=== PATIENT | male | born 1965 | race Caucasian/White ===

== ENCOUNTER 2023-11-27 20:12 | Inpatient (IN) ==
--- NOTE | 2023-11-27 20:57 | Emergency Department Note ---
History of Present Illness General Chief complaint: Back Injury/Pain Stated complaint: Lower Back Pain, R Leg Numbness Time Seen by Provider: 11/27/23 20:42 Source: patient, RN notes reviewed and old records reviewed (Attempted but there are no old records in the EMR) Mode of arrival: EMS Limitations: no limitations History of Present Illness Maximum Pain Intensity: 9 This patient is a 58-year-old male who comes in after having right-sided back pain. He was lifting cases of beer around 1:00 and had sudden back pain in his right lower back radiates down his leg he feels somewhat tingling in his leg but no weakness no change in bowel or bladder function there is no trauma no fever he does not have a primary doctor at present. Blood sugars tend to run high in the 200s Home Medications Medication Instructions Recorded Confirmed Type aspirin 325 mg tablet,delayed 0 mg PO DIRECTED PRN Pain 11/27/23 11/27/23 History release (Tadeo Aspirin) Allergies Allergy/AdvReac Type Severity Reaction Status Date / Time No Known Allergies Allergy Verified 11/27/23 21:02 Past Med/Surg History Social History Smoking Status: Never smoker Hx Alcohol Use: Yes Alcohol type: beer Hx Substance Use: No Preferred Language: Thai Communication Ability: Effective Behavioral Medical Director Required: No Beliefs That Will Affect Care: None Current Living Situation: Significant Other Feels Safe at Home: Yes Safety Concerns: Feels Safe At This Time Assistive Devices: Glasses Assistive Devices Comment: has not been wearing glasses for a few years Immunizations: Past medical historyno history of back surgery or MRI. History of high blood pressure which is untreated. No abdominal surgeries Social history- he does not smoke ,he drinks about 4 drinks a day does not have any trouble with withdrawal. Denies drug use Review of Systems A total of 10 systems reviewed and were otherwise negative Physical Exam Vital Signs Vital Signs - 24 hr 11/28/23 01:11 Pulse Rate [Right Finger] 60 Respiratory Rate 18 Blood Pressure [Right Arm] 142/79 H Blood Pressure Mean [Right Arm] 100 Blood Pressure Position [Right Arm] Lying Pulse Oximetry 94 Oxygen Delivery Method Room Air General: Well developed well nourished middle-age male who in no acute distress, breathing comfortably on room air. Normal speech HEENT: Normal cephalic atraumatic. Pupils are equal round and reactive to light. Extraocular movements are intact. Oropharynx is pink with moist mucous membranes. No swelling of the mouth lips or tongue. Neck: Supple with a midline trachea. No meningeal signs or stiffness, no JVD or bruits. No Stridor. Chest: Clear to auscultation bilaterally. No wheezes or rhonchi. No increased work of breathing. Heart: Regular rate and rhythm without murmurs or gallops. Abdomen: Soft nontender, nondistended without rebound guarding or rigidity. Extremities: No cyanosis clubbing or edema. No calf tenderness or assymetry Spine/Back. Mildly tender to palpation on the right lower spine. Skin: Good turgor without rashes. Neurologic exam: Cranial nerves two through 12 are intact. Motor and sensation are intact and symmetrical throughout. He does have pain with movement the right leg however when he does have intact reflexes with 2+ Achilles and patella he has intact sensation to light touch and normal motor. Course Administered Medications Insulin Aspart (Insulin Aspart Per Unit Charge) 0 units SC [facility] Stop: 12/28/23 20:59 Last Admin: 11/28/23 22:48 Dose: 7 units Documented By: STAR Co-signed By: TOLU Insulin Glargine (Lantus Per Unit Charge) 10 units SQ [facility] Stop: 12/28/23 19:29 Last Admin: 11/28/23 20:18 Dose: 10 units Documented By: STAR Co-signed By: TOLU Ketorolac Tromethamine (Ketorolac Tromethamine 15 Mg/Ml Vial) 15 mg IV Q6H PRN PRN Reason: Pain Stop: 12/03/23 13:01 Last Admin: 11/28/23 13:06 Dose: 15 mg Documented By: LEIGHA Lisinopril (Lisinopril 2.5 Mg Tab) 2.5 mg PO [facility] Stop: 12/28/23 19:29 Last Admin: 11/28/23 20:17 Dose: 2.5 mg Documented By: STAR Lorazepam (Lorazepam 0.5 Mg Tab) 0.5 mg PO TID PRN PRN Reason: Anxiety Stop: 12/28/23 02:40 Last Admin: 11/28/23 13:05 Dose: 0.5 mg Documented By: LEIGHA Miscellaneous (Remove Lidoderm Patch) 1 each N/A DAILY@2100 [facility] Stop: 12/28/23 14:59 Last Admin: 11/28/23 16:22 Dose: Not Given Documented By: PB Morphine Sulfate (Morphine Sulfate 4 Mg/Ml 1 Ml Carp\Vial) 4 mg IV Q4H PRN PRN Reason: Pain Stop: 12/12/23 02:40 Last Admin: 11/28/23 13:50 Dose: 4 mg Documented By: Admin: 11/28/23 05:21 Dose: 4 mg Documented By: AMMON Oxycodone HCl (Oxycodone Hcl Ir 5 Mg Tab (Immediate Release)) 5 - 10 mg PO QID PRN PRN Reason: Pain Stop: 12/12/23 02:40 Last Admin: 11/28/23 16:16 Dose: 10 mg Documented By: Admin: 11/28/23 07:46 Dose: 10 mg Documented By: PB Tizanidine HCl (Tizanidine Hcl 4 Mg Tablet) 2 mg PO TID PRN PRN Reason: spasm Stop: 12/28/23 20:59 Last Admin: 11/28/23 21:47 Dose: 2 mg Documented By: STAR Discontinued Medications Potassium Chloride/Sodium Chloride (Normal Saline W/20 Meq Kcl) 20 meq in 1,000 mls @ 75 mls/hr IV .[id number] STA; Protocol Stop: 11/28/23 15:28 Last Infusion: 11/28/23 15:48 Dose: Infused Documented By: Admin: 11/28/23 02:25 Dose: 75 mls/hr Documented By: TORI Ketorolac Tromethamine (Ketorolac Tromethamine 15 Mg/Ml Vial) 15 mg IV NOW ONE Stop: 11/27/23 20:58 Last Admin: 11/27/23 21:56 Dose: 15 mg Documented By: CELIA Lidocaine (Lidocaine 5% 1 Patch) 1 patch TD ONE STA Stop: 11/28/23 02:09 Last Admin: 11/28/23 02:23 Dose: 1 patch Documented By: TORI Methylprednisolone (Methylprednisolone 125 Mg/2 Ml Vial) 125 mg IV NOW STA Stop: 11/27/23 23:27 Last Admin: 11/27/23 23:45 Dose: 125 mg Documented By: TORI Morphine Sulfate (Morphine Sulfate 4 Mg/Ml 1 Ml Carp\Vial) 4 mg IV NOW STA Stop: 11/27/23 23:27 Last Admin: 11/28/23 00:28 Dose: Not Given Documented By: TORI Morphine Sulfate (Morphine Sulfate 4 Mg/Ml 1 Ml Carp\Vial) 4 mg IV NOW STA Stop: 11/27/23 23:42 Last Admin: 11/27/23 23:49 Dose: 4 mg Documented By: TORI Morphine Sulfate (Morphine Sulfate 10 Mg/Ml Carp/Vial) 6 mg IV NOW STA Stop: 11/28/23 00:50 Last Admin: 11/28/23 00:53 Dose: 6 mg Documented By: TORI Ondansetron HCl (Ondansetron Inj 2 Mg/Ml 2 Ml Vial) 4 mg IV NOW STA Stop: 11/27/23 23:27 Last Admin: 11/28/23 00:28 Dose: Not Given Documented By: TORI Ondansetron HCl (Ondansetron Inj 2 Mg/Ml 2 Ml Vial) 4 mg IV NOW STA Stop: 11/27/23 23:42 Last Admin: 11/27/23 23:47 Dose: 4 mg Documented By: TORI Medical Decision Making Differential Diagnosis Lumbar disc disease, fracture, strain or sprain, sciatica, diabetes complication, kidney stone, aneurysm, intra-abdominal process Medical Records Attestation: I reviewed the patient's medical records. Home Medications Current Medication List: was personally reviewed by me Laboratory Data Attestation: I reviewed the patient's lab results. 11/27/23 20:22 11/27/23 20:22 Lab Results 11/27/23 11/28/23 Range/Units 20:22 02:30 WBC 6.83 (4.8-10.8) K/ul RBC 5.00 (4.70-6.10) M/uL Hgb 16.6 (14.0-18.0) g/dl Hct 46.2 (42.0-52.0) % MCV 92.4 (80.0-100.0) fL MCH 33.2 (25.0-34.0) pg MCHC 35.9 (32.0-36.0) g/dL RDW Std Deviation 41.5 (36.4-46.3) fL RDW Coeff of Kevin 12.2 (11.5-14.5) % Plt Count 113 L (130-400) K/uL MPV 9.6 (9.4-12.4) fL Immature Gran % (Auto) 1.3 % Neut % (Auto) 70.4 % Lymph % (Auto) 15.5 % [place] % (Auto) 9.5 % Eos % (Auto) 2.3 % Baso % (Auto) 1.0 % Neut # (Auto) 4.80 (1.40-6.50) K/uL Lymph # (Auto) 1.06 L (1.20-3.40) K/uL [place] # (Auto) 0.65 H (0.11-0.59) K/uL Eos # (Auto) 0.16 (0.00-0.50) K/uL Baso # (Auto) 0.07 (0.00-0.20) K/uL Immature Gran # (Auto) 0.09 (0.01-0.20) K/uL Sodium 137 (136-145) mmol/L Potassium 3.6 (3.5-5.1) mmol/L Chloride 104 (98-107) mmol/L Carbon Dioxide 24 (21-32) mmol/L Anion Gap 9 (3-11) BUN 14 (6-23) mg/dl Creatinine 0.77 (0.6-1.4) mg/dl Est Cr Clr Drug Dosing 117.0 ml/min Est GFR ( Amer) 115.1 ml/min Est GFR (Non-Af Amer) 99.3 ml/min BUN/Creatinine Ratio 18.2 (10-20) Glucose 194 H (70-99(Fasting)) mg/dl Estimat Average Glucose 212 mg/dl Hemoglobin A1c 9.0 H (4.5-5.6) % Calcium 9.1 (8.6-10.3) mg/dl Total Bilirubin 1.0 (0.2-1.0) mg/dl AST 19 (13-39) U/L ALT 27 (7-52) U/L Alkaline Phosphatase 74 (34-104) U/L Total Protein 6.9 (6.0-8.3) gm/dl Albumin 4.6 (3.4-5.0) gm/dl Globulin 2.3 L (2.5-4.0) gm/dl Albumin/Globulin Ratio 2.0 (0.9-2) Lipase 26 (11-82) U/L Urine Color Dark Yellow Urine Appearance Clear (Clear) Urine pH 6.0 (4.5-7.5) Ur Specific [place] 1.033 H (1.000-1.030) Urine Protein Trace H (Negative) Urine Glucose (UA) 3+ H (Negative) Urine Ketones 1+ H (Negative) Urine Blood Negative (Negative) Urine Nitrite Negative (Negative) Urine Bilirubin Negative (Negative) Urine Urobilinogen Negative (Negative) Ur Leukocyte Esterase Negative (Negative) Urine WBC (Auto) 1-5 (0-5) /hpf Urine RBC (Auto) 0-4 (0-4) /hpf U Hyaline Cast (Auto) 1-5 (0-5) /lpf U Epithel Cells (Auto) 0-5 (0-5) /lpf Urine Bacteria (Auto) Negative (Negative) Imaging Data Attestation: I personally reviewed and interpreted this imaging study as follows: My Impression: CT of the abdomen pelvisno obstructive uropathy seen or aortic pathology Radiologist's Impression: Abdomen/Pelvis CT 11/27/23 20:53 Exam(s): CT ABDOMEN + PELVIS Without Contrast EXAM: CT Abdomen and Pelvis Without Intravenous Contrast CLINICAL HISTORY: Reason for exam: rt back pain after lifting. TECHNIQUE: Axial computed tomography images of the abdomen and pelvis without intravenous contrast. CTDI is 27.27 mGy and DLP is 1351.81 mGy-cm. Automated exposure control was utilized for the study. A dose lowering technique was utilized adhering to the principles of ALARA. COMPARISON: None. FINDINGS: Lung bases: Minimal posterior dependent atelectasis, otherwise normal lung bases. ABDOMEN: Liver: Possible minimal diffuse fatty liver. Gallbladder and bile ducts: Unremarkable. No calcified stones. No ductal dilation. Pancreas: Unremarkable. No ductal dilation. Spleen: The spleen measures 13.2 cm consistent with borderline mild splenomegaly. Adrenals: Unremarkable. No mass. Kidneys and ureters: Unremarkable. No obstructing stones. No hydronephrosis. Stomach and bowel: Unremarkable. No obstruction. No mucosal thickening. PELVIS: Appendix: Normal appendix. Bladder: Unremarkable. No stones. Reproductive: Mild prostate enlargement. ABDOMEN and PELVIS: Intraperitoneal space: Unremarkable. No free air. No significant fluid collection. Bones/joints: Multilevel degenerative disease of the spine. No acute fracture. No dislocation. Soft tissues: Unremarkable. Vasculature: Unremarkable. No abdominal aortic aneurysm. Lymph nodes: Unremarkable. No enlarged lymph nodes. IMPRESSION: 1. Possible mild diffuse fatty liver with borderline-mild splenomegaly. Remainder of abdominal viscera unremarkable. 2. No acute appendicitis or bowel obstruction. Electronically signed by: Ghazala Aiken MD 11/27/23 22:55 PM MDM Narrative This patient comes in with back pain he was atraumatic he was lifting. He said he has some numbness however on exam he has a normal neurologic exam he is intact to light touch has normal reflexes and motor with some limitation secondary to pain. IV access established blood work was obtained I ordered a urinalysis as well he was given Toradol 10 mg IV he did come in by ambulance but says his girlfriend can drive him home. I ordered a CAT scan initially to further evaluate him to look at the back as well as rule out any other intra- abdominal process. His CAT scan was unremarkable. His blood sugar is mildly elevated but he has no evidence to suggest that he has DKA. He has no fever or white count to suggest infection. He did require additional pain medication was given morphine 4 mg IV and Zofran 4 mg IV. He seems comfortable and was rechecked when he tries to stand up he cannot give him another 6 mg of morphine IV. I rechecked him again and he still cannot get out of bed. I suspect he does have sciatica and lumbar disc disease. He was given Solu-Medrol 125 mg IV. He will need to be admitted/observed for treatment of intractable back pain he will likely need MRI and further evaluation. He was happy the plan I did discuss case in consultation with Dr. Machado [facility] who saw the patient in the ER for admission Continuous cardiac monitoring: Orders placed in EMR for continuos diagnostic cardiac sonographer: Upon my evaluation patient noted to be in normal sinus with a rate of 75 Impression & Plan Lumbar radiculopathy, Intractable low back pain, Hyperglycemia, Muscle spasm of back Discharge Plan Visit Data Chief Complaint: Back Injury/Pain Stated Complaint: Lower Back Pain, R Leg Numbness ED Provider: Asael Montoya Discharge Problem: Lumbar radiculopathy, Intractable low back pain, Hyperglycemia, Muscle spasm of back Patient Disposition: Admitted As Inpatient Discharge Instructions Interventions: ED Discharge Assessment Last Done: 11/28/23 04:28
[2023-11-27 21:28] LABS: Albumin Level 4.6 gm/dl (3.4-5.0); BUN Creatinine Ratio 18.2 (10-20); Calcium 9.1 mg/dl (8.6-10.3); Est GFR (African American) 115.1 ml/min; Est GFR (Non-African American) 99.3 ml/min; Globulin 2.3 gm/dl (2.5-4.0); Potassium 3.6 mmol/L (3.5-5.1); Total Protein 6.9 gm/dl (6.0-8.3)
[2023-11-27 21:37] LABS: Basophils # (auto) 0.07 K/uL (0.00-0.20); Eosinophils # (auto) 0.16 K/uL (0.00-0.50); Eosinophils % (auto) 2.3 %; Hematocrit (blood only) 46.2 % (42.0-52.0); Hemoglobin 16.6 g/dl (14.0-18.0); Immature Granulocytes # (auto) 0.09 K/uL (0.01-0.20); Immature Granulocytes % (auto) 1.3 %; Lymphocytes # (auto) 1.06 K/uL (1.20-3.40); Lymphocytes % (auto) 15.5 %; Mean Corpuscular Hemoglobin 33.2 pg (25.0-34.0); Mean Corpuscular Hgb Conc 35.9 g/dL (32.0-36.0); Mean Corpuscular Volume 92.4 fL (80.0-100.0); Mean Platelet Volume 9.6 fL (9.4-12.4); Monocytes # (auto) 0.65 K/uL (0.11-0.59); Monocytes % (auto) 9.5 %; Neutrophils % (auto) 70.4 %; Platelet Count 113 K/uL (130-400); RDW Coefficient of Variation 12.2 % (11.5-14.5); RDW Standard Deviation 41.5 fL (36.4-46.3); White Blood Count 6.83 K/ul (4.8-10.8)
[2023-11-27] MEDS: KETOROLAC TROMETHAMINE 15 MG/ML VIAL IV ONE (21:56)
--- NOTE | 2023-11-27 22:56 | CT Scan Report ---
Exam(s): CT ABDOMEN + PELVIS Without Contrast EXAM: CT Abdomen and Pelvis Without Intravenous Contrast CLINICAL HISTORY: Reason for exam: rt back pain after lifting. TECHNIQUE: Axial computed tomography images of the abdomen and pelvis without intravenous contrast. CTDI is 27.27 mGy and DLP is 1351.81 mGy-cm. Automated exposure control was utilized for the study. A dose lowering technique was utilized adhering to the principles of ALARA. COMPARISON: None. FINDINGS: Lung bases: Minimal posterior dependent atelectasis, otherwise normal lung bases. ABDOMEN: Liver: Possible minimal diffuse fatty liver. Gallbladder and bile ducts: Unremarkable. No calcified stones. No ductal dilation. Pancreas: Unremarkable. No ductal dilation. Spleen: The spleen measures 13.2 cm consistent with borderline mild splenomegaly. Adrenals: Unremarkable. No mass. Kidneys and ureters: Unremarkable. No obstructing stones. No hydronephrosis. Stomach and bowel: Unremarkable. No obstruction. No mucosal thickening. PELVIS: Appendix: Normal appendix. Bladder: Unremarkable. No stones. Reproductive: Mild prostate enlargement. ABDOMEN and PELVIS: Intraperitoneal space: Unremarkable. No free air. No significant fluid collection. Bones/joints: Multilevel degenerative disease of the spine. No acute fracture. No dislocation. Soft tissues: Unremarkable. Vasculature: Unremarkable. No abdominal aortic aneurysm. Lymph nodes: Unremarkable. No enlarged lymph nodes. IMPRESSION: 1. Possible mild diffuse fatty liver with borderline-mild splenomegaly. Remainder of abdominal viscera unremarkable. 2. No acute appendicitis or bowel obstruction. Electronically signed by: Ghazala Aiken MD 11/27/23 22:55 PM
[2023-11-27] MEDS: methylPREDNISolone 125 MG/2 ML VIAL IV STA (23:45)
[2023-11-27] MEDS: ONDANSETRON INJ 2 MG/ML 2 ML VIAL IV STA (23:47)
[2023-11-27] MEDS: MoRPHine SULFATE 4 MG/ML 1 ML CARP\\VIAL IV STA (23:49)
[2023-11-28] MEDS: MoRPHine SULFATE 4 MG/ML 1 ML CARP\\VIAL IV STA (00:28)
[2023-11-28] MEDS: ONDANSETRON INJ 2 MG/ML 2 ML VIAL IV STA (00:28)
[2023-11-28] MEDS: MoRPHine SULFATE 10 MG/ML CARP/VIAL IV STA (00:53)
[2023-11-28] MEDS: LIDOCAINE 5% 1 PATCH TD STA (02:23)
[2023-11-28] MEDS: NSS + 20MEQ KCL 20 MEQ/1,000 ML BAG IV STA (02:25)
--- NOTE | 2023-11-28 02:40 | History & Physical Report ---
Date of Service November 28, 2023 Assessment & Plan (1) Lumbar radiculopathy: Plan: Situational hypertension, history of borderline hypertension as per patient prediabetes as per patient Fatty liver on imaging OBS GMF Analgesia Lidoderm patch trial PT eval Monitor BP, initiate lisinopril if with persistent BP elevation Check hemoglobin A1c Outpatient GI evaluation for fatty liver DVT prophylaxis. SCDs Re: Patient may need procedure for back pain if no respon se to medical management Full code Text document was generated using [employer] voice recognition software. It may contain grammatical or spelling errors. Kindly contact undersigned for clarification of any documentation item in question. History of Present Illness Chief Complaint: Back pain Primary Care Provider: NO PCP History obtained from patient and records. Medical history significant for borderline hypertension, borderline DM per patient. Patient experienced achy right-sided back pain after lifting cases of beer at work yesterday. No fever, no chills, no unusual weight loss. Denies bowel/bladder incontinence. Denies headache. Patient still unable to walk despite IV analgesics and steroids given at the ER. SBP 180s upon arrival at the ER. Medical History as above Surgical History : Lipoma removal lower extremity Family History : High blood pressure, hyperlipidemia Personal/Social history : Non-smoker, occasional EtOH intake, beer [employer] business Allergies Allergy/AdvReac Type Severity Reaction Status Date / Time No Known Allergies Allergy Verified 11/27/23 21:02 Home Medications Medication Instructions Recorded Confirmed Type aspirin 325 mg tablet,delayed 0 mg PO DIRECTED PRN Pain 11/27/23 11/27/23 History release (Tadeo Aspirin) Past Med/Surg History Social History Smoking Status: Never smoker Hx Alcohol Use: Yes Alcohol type: beer Hx Substance Use: No Preferred Language: Setswana Communication Ability: Effective Food Equipment Service Technician Required: No Beliefs That Will Affect Care: None Current Living Situation: Significant Other Feels Safe at Home: Yes Safety Concerns: Feels Safe At This Time Assistive Devices: Glasses Assistive Devices Comment: has not been wearing glasses for a few years Review of Systems Review of Systems: As per HPI, all other systems reviewed and negative Physical Exam Physical Exam: GENERAL: Slightly uncomfortable, obese, pleasant, no respiratory distress SKIN: Normal color, warm HEENT: [place] palpebral conjunctivae, no ptosis, dry buccal mucosa NECK : Supple, short neck, no tenderness CHEST : CTA, no tenderness HEART : RRR, no obvious murmurs ABDOMEN: Some distention, nontender BACK : Low back tenderness, positive SLR right EXTREMITIES : No LE swelling, subcutaneous tumor left thigh, no other conspicuous deformities noted NEUROLOGIC : Coherent, no facial asymmetry, no other gross focality Results & Data Results & Data Vital Signs (Past 12 Hours) Vital Signs Temp Pulse Pulse Resp BP BP Pulse Ox 11/28/23 01:11 60 18 142/79 H 94 11/28/23 00:18 93 H 11/27/23 23:20 88 18 172/109 H 99 11/27/23 21:59 52 L 16 179/94 H 98 11/27/23 20:21 36.8 C 82 14 183/120 H 98 11/27/23 20:18 95 H O2 Del Method 11/28/23 01:11 Room Air 11/28/23 00:18 11/27/23 23:20 Room Air 11/27/23 21:59 Room Air 11/27/23 20:21 Room Air 11/27/23 20:18 Laboratory Results Laboratory Results WBC 6.83 K/ul (4.8-10.8) 11/27/23 20:22 RBC 5.00 M/uL (4.70-6.10) 11/27/23 20:22 Hgb 16.6 g/dl (14.0-18.0) 11/27/23 20:22 Hct 46.2 % (42.0-52.0) 11/27/23 20:22 MCV 92.4 fL (80.0-100.0) 11/27/23 20:22 MCH 33.2 pg (25.0-34.0) 11/27/23 20:22 MCHC 35.9 g/dL (32.0-36.0) 11/27/23 20:22 RDW Std Deviation 41.5 fL (36.4-46.3) 11/27/23 20:22 RDW Coeff of Kevin 12.2 % (11.5-14.5) 11/27/23 20:22 Plt Count 113 K/uL (130-400) L 11/27/23 20:22 MPV 9.6 fL (9.4-12.4) 11/27/23 20:22 Immature Gran % (Auto) 1.3 % 11/27/23 20: Neut % (Auto) 70.4 % 11/27/23 20: Lymph % (Auto) 15.5 % 11/27/23 20: [place] % (Auto) 9.5 % 11/27/23 20: Eos % (Auto) 2.3 % 11/27/23 20:22 Baso % (Auto) 1.0 % 11/27/23 20: Neut # (Auto) 4.80 K/uL (1.40-6.50) 11/27/23 20: Lymph # (Auto) 1.06 K/uL (1.20-3.40) L 11/27/23 20: [place] # (Auto) 0.65 K/uL (0.11-0.59) H 11/27/23 20:22 Eos # (Auto) 0.16 K/uL (0.00-0.50) 11/27/23 20: Baso # (Auto) 0.07 K/uL (0.00-0.20) 11/27/23 20:22 Immature Gran # (Auto) 0.09 K/uL (0.01-0.20) 11/27/23 20:22 Sodium 137 mmol/L (136-145) 11/27/23 20: Potassium 3.6 mmol/L (3.5-5.1) 11/27/23 20:22 Chloride 104 mmol/L (98-107) 11/27/23 20: Carbon Dioxide 24 mmol/L (21-32) 11/27/23 20:22 Anion Gap 9 (3-11) 11/27/23 20:22 BUN 14 mg/dl (6-23) 11/27/23 20:22 Creatinine 0.77 mg/dl (0.6-1.4) 11/27/23 20:22 Est Cr Clr Drug Dosing 117.0 ml/min 11/27/23 20:22 Est GFR ( Amer) 115.1 ml/min 11/27/23 20:22 Est GFR (Non-Af Amer) 99.3 ml/min 11/27/23 20:22 BUN/Creatinine Ratio 18.2 (10-20) 11/27/23 20:22 Glucose 194 mg/dl (70-99(Fasting)) H 11/27/23 20:22 Calcium 9.1 mg/dl (8.6-10.3) 11/27/23 20:22 Total Bilirubin 1.0 mg/dl (0.2-1.0) 11/27/23 20:22 AST 19 U/L (13-39) 11/27/23 20:22 ALT 27 U/L (7-52) 11/27/23 20:22 Alkaline Phosphatase 74 U/L (34-104) 11/27/23 20:22 Total Protein 6.9 gm/dl (6.0-8.3) 11/27/23 20:22 Albumin 4.6 gm/dl (3.4-5.0) 11/27/23 20:22 Globulin 2.3 gm/dl (2.5-4.0) L 11/27/23 20:22 Albumin/Globulin Ratio 2.0 (0.9-2) 11/27/23 20:22 Lipase 26 U/L (11-82) 11/27/23 20:22 Impressions Abdomen/Pelvis CT 11/27/23 20:53 Exam(s): CT ABDOMEN + PELVIS Without Contrast EXAM: CT Abdomen and Pelvis Without Intravenous Contrast CLINICAL HISTORY: Reason for exam: rt back pain after lifting. TECHNIQUE: Axial computed tomography images of the abdomen and pelvis without intravenous contrast. CTDI is 27.27 mGy and DLP is 1351.81 mGy-cm. Automated exposure control was utilized for the study. A dose lowering technique was utilized adhering to the principles of ALARA. COMPARISON: None. FINDINGS: Lung bases: Minimal posterior dependent atelectasis, otherwise normal lung bases. ABDOMEN: Liver: Possible minimal diffuse fatty liver. Gallbladder and bile ducts: Unremarkable. No calcified stones. No ductal dilation. Pancreas: Unremarkable. No ductal dilation. Spleen: The spleen measures 13.2 cm consistent with borderline mild splenomegaly. Adrenals: Unremarkable. No mass. Kidneys and ureters: Unremarkable. No obstructing stones. No hydronephrosis. Stomach and bowel: Unremarkable. No obstruction. No mucosal thickening. PELVIS: Appendix: Normal appendix. Bladder: Unremarkable. No stones. Reproductive: Mild prostate enlargement. ABDOMEN and PELVIS: Intraperitoneal space: Unremarkable. No free air. No significant fluid collection. Bones/joints: Multilevel degenerative disease of the spine. No acute fracture. No dislocation. Soft tissues: Unremarkable. Vasculature: Unremarkable. No abdominal aortic aneurysm. Lymph nodes: Unremarkable. No enlarged lymph nodes. IMPRESSION: 1. Possible mild diffuse fatty liver with borderline-mild splenomegaly. Remainder of abdominal viscera unremarkable. 2. No acute appendicitis or bowel obstruction. Electronically signed by: Ghazala Aiken MD 11/27/23 22:55 PM Diagnostic Findings EKG as per my interpretation : Rate 70, NSR, normal axis, T wave abnormalities inferior leads
[2023-11-28] MEDS ORDERED: PROMETHAZINE HCL 12.5 MG in SODIUM CHLORIDE 0.9% 50 ML IV PRN (02:41)
[2023-11-28 02:44] LABS: Appearance Urine Clear (Clear); Bacteria Urine Automated Negative (Negative); Bilirubin Urine Negative (Negative); Blood Urine Negative (Negative); Color Urine Dark Yellow; Epithelial Cell Urine Auto 0-5 /lpf (0-5); Glucose Urine UA 3+ (Negative); Ketones Urine 1+ (Negative); Leukocyte Esterase Urine Negative (Negative); Nitrite Urine Negative (Negative); Protein Urine Trace (Negative); RBC Urine Automated 0-4 /hpf (0-4); Specific Gravity Urine 1.033 (1.000-1.030); Urobilinogen Urine Negative (Negative)
[2023-11-28] MEDS: MoRPHine SULFATE 4 MG/ML 1 ML CARP\\VIAL IV PRN (05:21)
--- NOTE | 2023-11-28 07:02 | CT Scan Report ---
LUMBAR SPINE CT CT DOSE: HISTORY: back pain, pls obtain form ctap images TECHNIQUE: Multiaxial CT images of the lumbar spine were performed and reformatted in the sagittal an d coronal plane without the use of contrast. A dose lowering technique was utilized adhering to the principles of ALARA. COMPARISON: Abdomen and pelvis CT 11/27/2023. FINDINGS: No fractures within the lumbar spine. The sacrum is intact. There is 3 mm of anterolisthesi s of L4 on L5. Mild disc space narrowing at L2-L3 and L4-5. The remaining disc spaces are preserved. [id number] facet degenerative changes most pronounced at the L4-5 level. No evidence for spondy lolysis. Moderate central canal narrowing at the L4-5 level due to a broad-based posterior disc bulge and ligamentum flavum and facet hypertrophy. There is also moderate to severe bilateral neural felix inal narrowing. There is mild central canal narrowing at L2-L3 and L3-L4 due to broad-based posterior disc bulges. Paravertebral soft tissues are unremarkable. IMPRESSION: 1. No fractures within the lumbar spine. 2. Degenerative changes as described above most pronounced at the L4-L5 level. ACT 112: Negative or not required by law. Electronically signed by: Darnell Crisostomo M.D. 11/28/2023 7:00 AM
[2023-11-28 07:14] LABS: Estimated Average Glucose 212 mg/dl
[2023-11-28] MEDS: oxyCODONE HCL IR 5 MG TAB (IMMEDIATE RELEASE) PO PRN (07:46)
[2023-11-28] MEDS: LORazepam 0.5 MG TAB PO PRN (13:05)
[2023-11-28] MEDS: KETOROLAC TROMETHAMINE 15 MG/ML VIAL IV PRN (13:06)
--- NOTE | 2023-11-28 15:39 | Consultation ---
Date of Consultation November 28, 2023 Assessment & Plan (1) Lumbar radiculopathy: Dr. Douglas has reviewed lumbar CT scan. Findings reveal a grade 1 spondylolisthesis at L4-5 with severe right-sided foraminal stenosis. My suspicion is a disc herniation at this level as well. We will pursue MRI of the lumbar spine without contrast for further evaluation and help in our decision making. Once MRI has been performed, we will review with the patient and make further recommendations. History of Present Illness Reason for Consultation: Lumbar radiculopathy Attending Physician: Jc Fuentes MD History of Present Illness This is a 58-year-old gentleman who was at work yesterday and was lifting some beer per his chart when he had acute onset of right lumbar and right lower extremity paresthesias. He was unable to weight-bear. Pain was severe. He called an ambulance and presented to the ER with subsequent admission. Currently he states his pain is a little bit better but still quite limiting. He is unable to give me a specific pain pattern. Left leg is asymptomatic. Denies perineum numbness. Denies bowel or bladder dysfunction. Allergies Allergy/AdvReac Type Severity Reaction Status Date / Time No Known Allergies Allergy Verified 11/27/23 21:02 Home Medications Medication Instructions Recorded Confirmed Type aspirin 325 mg tablet,delayed 0 mg PO DIRECTED PRN Pain 11/27/23 11/27/23 History release (Tadeo Aspirin) Patient History Social History Smoking Status: Never smoker Hx Alcohol Use: Yes Alcohol type: beer Hx Substance Use: No Preferred Language: Jordanian Communication Ability: Effective Customer Solutions Architect Required: No Beliefs That Will Affect Care: None Current Living Situation: Significant Other Feels Safe at Home: Yes Safety Concerns: Feels Safe At This Time Assistive Devices: Glasses Assistive Devices Comment: has not been wearing glasses for a few years Review of Systems Review of Systems: All systems reviewed & are unremarkable except as noted in HPI & below Physical Exam Physical Exam: Alert and oriented x 3 upon any movement in bed he is in extreme pain. He is unable to get out of bed on his own without at least a two-person assist. Positive straight leg raise on the right negative contralateral straight leg raise motor testing is 5/5 bilateral EHL, dorsiflexion, plantarflexion, quadriceps, hamstrings, hip flexors, hip abductor's and hip adductor's negative logrolling bilaterally Nontender to palpation over the greater trochanter region on the right and SI joints. Results & Data Vital Signs (Past 12 Hours) Vital Signs Temp Pulse Pulse Resp BP BP Pulse Ox 11/28/23 07:17 36.7 C 65 18 154/70 H 94 11/28/23 06:03 11/28/23 04:55 36.7 C 69 16 154/75 H 96 11/28/23 04:28 88 14 128/62 94 O2 Del Method 11/28/23 07:17 Room Air 11/28/23 06:03 Room Air 11/28/23 04:55 Room Air 11/28/23 04:28 Room Air Diagnostic Findings [place], [place] [phone] CT Scan Report Patient: JESSICA WOOTEN Admit Date: 11/28/23 MR#: [id number] Address1: [address] Acct ID:[id number] Address2: Date: 1965 [facility] Zip: [place] [address] Age: 58 Location: 3W Sex: M Room/Bed: [facility] Att Phy: Jc Fuentes MD Diagnosis: BACK PAIN Uma Phy: PCP,NO Service Date: 11/28/23 Fam Phy: Interpreting Phy: Darnell Crisostomo MDAdmit Phy: Dedrick Hoang MD Ordering Phy: Dedrick Hoang MD cc: ~ LUMBAR SPINE CT CT DOSE: HISTORY: back pain, pls obtain form ctap images TECHNIQUE: Multiaxial CT images of the lumbar spine were performed and reformatted in the sagittal and coronal plane without the use of contrast. A dose lowering technique was utilized adhering to the principles of ALARA. COMPARISON: Abdomen and pelvis CT 11/27/2023. FINDINGS: No fractures within the lumbar spine. The sacrum is intact. There is 3 mm of anterolisthesis of L4 on L5. Mild disc space narrowing at L2-L3 and L4-5. The remaining disc spaces are preserved. [id number]-uv-[id number] facet degenerative changes most pronounced at the L4-5 level. No evidence for spondylolysis. Moderate central canal narrowing at the L4-5 level due to a broad-based posterior disc bulge and ligamentum flavum and facet hypertrophy. There is also moderate to severe bilateral neural foraminal narrowing. There is mild central canal narrowing at L2-L3 and L3-L4 due to broad-based posterior disc bulges. Paravertebral soft tissues are unremarkable. IMPRESSION: 1. No fractures within the lumbar spine. 2. Degenerative changes as described above most pronounced at the L4-L5 level. ACT 112: Negative or not required by law. Electronically signed by: Darnell Crisostomo M.D. 11/28/2023 7:00 AM Dictated: 11/28/23 0656 Transcribed: 11/28/23 0656
[2023-11-28] MEDS ORDERED: GLUCOSE 10 TAB/TUBE PO PRN (17:58)
[2023-11-28] MEDS ORDERED: GLUCOSE 40% GEL 15 GM TUBE PO PRN (17:58)
[2023-11-28] MEDS ORDERED: DEXTROSE 50% 50 ML SYRINGE IV PRN (17:58)
[2023-11-28] MEDS ORDERED: CARBOHYDRATES FOR HYPOGLYCEMIA PO PRN (17:58)
[2023-11-28] MEDS ORDERED: GLUCAGON FOR INJ 1 MG VIAL SQ PRN (17:58)
--- NOTE | 2023-11-28 18:17 | Hospitalist Progress Note ---
Date of Service November 28, 2023 Assessment & Plan (1) Lumbar radiculopathy: Plan: Significant low back pain with radiation of the pain to the right buttock and right leg up to the foot Has been going on for a while and worse for the last 2 to 3 days No bladder and/or bowel problem Has been getting pain medications as advised Appreciate orthospine evaluation Has had lumbar spine MRI and the reports are pending Further management will depend on Ortho spine Situational hypertension, history of borderline hypertension as per patient Blood pressure remains on the upper side at 165/80 Will not start any medications as of yet Prediabetes as per patient Hemoglobin A1c is elevated at 9.0 Diabetic diet and diabetes teaching Will put on sliding scale insulin coverage Fatty liver on imaging Likely due to obesity Will advised to reduce weight DVT prophylaxis. SCDs Re: Patient may need procedure for back pain if no response to medical management Full code Text document was generated using [employer] voice recognition software. It may contain grammatical or spelling errors. Kindly contact undersigned for clarification of any documentation item in question. Admission and Anticipated Discharge Date Admission Date: November 28, 2023 Subjective 11/28/2023 The patient was seen and examined in medical floor He has been having back pain for a while but the pain got worse for the last 2 to 3 days Pain in the lower back radiates to right leg up to the foot Has not been getting any improvement even following admission Review of Systems Review of Systems: All systems reviewed and are unremarkable except as noted below Physical Exam Physical Exam: Lying in bed without any acute distress Constitutional: well developed, well nourished, + ill appearing and + obese Eyes: PERRL, conjunctivae normal, anicteric sclerae ENMT: external ear and nose normal, oropharynx normal Neck: trachea midline, no thyromegaly Respiratory: no respiratory distress Auscultation: lungs clear to auscultation bilaterally Cardiovascular: Rate/Rhythm: regular rate and regular rhythm; not tachycardic Heart Sounds: normal S1 and normal S2; no murmur Extremities: no edema Gastrointestinal (Abdomen): Inspection/Auscultation: normal bowel sounds; abdomen not distended Percussion/Palpation: abdomen soft; abdomen nontender Musculoskeletal: Lower back pain and tenderness. Pain in the lower right buttock. Right leg raising test is positive Neurologic: normal touch/pain/proprioception and moves all extremities; no focal motor deficits Psychiatric: A+Ox3, euthymic affect Lymphatic: no cervical or axillary lymphadenopathy Results & Data Results & Data Vital Signs (Past 12 Hours) Vital Signs Temp Pulse Resp BP Pulse Ox O2 Del Method 11/28/23 15:37 36.7 C 60 18 165/80 H 97 Room Air 11/28/23 07:17 36.7 C 65 18 154/70 H 94 Room Air Laboratory Results Short CBC 11/27/23 Range/Units 20:22 WBC 6.83 (4.8-10.8) K/ul Hgb 16.6 (14.0-18.0) g/dl Hct 46.2 (42.0-52.0) % Plt Count 113 L (130-400) K/uL BMP 11/27/23 20:22 Sodium 137 Potassium 3.6 Chloride 104 Carbon Dioxide 24 BUN 14 Creatinine 0.77 Glucose 194 H Calcium 9.1 Liver Function 11/27/23 Range/Units 20:22 Total Bilirubin 1.0 (0.2-1.0) mg/dl AST 19 (13-39) U/L ALT 27 (7-52) U/L Alkaline Phosphatase 74 (34-104) U/L Albumin 4.6 (3.4-5.0) gm/dl Urine 11/28/23 Range/Units 02:30 Urine Color Dark Yellow Urine Appearance Clear (Clear) Urine pH 6.0 (4.5-7.5) Ur Specific Louise 1.033 H (1.000-1.030) Urine Protein Trace H (Negative) Urine Glucose (UA) 3+ H (Negative) Medications Administered Current Inpatient Medications Acetaminophen (Acetaminophen 500 Mg Tab) 500 mg PO Q6H PRN PRN Reason: fever/pain Stop: 12/28/23 02:40 Dextrose (Dextrose 50% 50 Ml Syringe) 25 - 50 ml IV UD PRN; Protocol PRN Reason: Hypoglycemia Protocol Stop: 12/28/23 17:57 Glucagon (Glucagon For Inj 1 Mg Vial) 1 mg SQ UD PRN; Protocol PRN Reason: Hypoglycemia Protocol Stop: 12/28/23 17:57 Glucose (Glucose 10 Tab/Tube) 4 - 8 tab PO UD PRN; Protocol PRN Reason: Hypoglycemia Treatment Stop: 12/28/23 17:57 Glucose (Glucose 40% Gel 15 Gm Tube) 15 - 30 gm PO UD PRN; Protocol PRN Reason: Hypoglycemia Protocol Stop: 12/28/23 17:57 Promethazine HCl 12.5 mg/ (Sodium Chloride) 50.5 mls @ 202 mls/hr IV Q6H PRN PRN Reason: Nausea And Vomiting Stop: 12/28/23 02:40 Insulin Aspart (Insulin Aspart Per Unit Charge) 0 units SC ACHS [facility] Stop: 12/28/23 20:59 Ketorolac Tromethamine (Ketorolac Tromethamine 15 Mg/Ml Vial) 15 mg IV Q6H PRN PRN Reason: Pain Stop: 12/03/23 13:01 Last Admin: 11/28/23 13:06 Dose: 15 mg Lidocaine (Lidocaine 5% 1 Patch) 1 patch TD QAM [facility] Stop: 12/29/23 08:59 Lorazepam (Lorazepam 0.5 Mg Tab) 0.5 mg PO TID PRN PRN Reason: Anxiety Stop: 12/28/23 02:40 Last Admin: 11/28/23 13:05 Dose: 0.5 mg Miscellaneous (Remove Lidoderm Patch) 1 each N/A DAILY@2100 [facility] Stop: 12/28/23 14:59 Last Admin: 11/28/23 16:22 Dose: Not Given Miscellaneous (Carbohydrates For Hypoglycemia ) 15 - 30 gm PO UD PRN PRN Reason: Hypoglycemia Protocol Stop: 12/28/23 17:57 Morphine Sulfate (Morphine Sulfate 4 Mg/Ml 1 Ml Carp\Vial) 4 mg IV Q4H PRN PRN Reason: Pain Stop: 12/12/23 02:40 Last Admin: 11/28/23 13:50 Dose: 4 mg Oxycodone HCl (Oxycodone Hcl Ir 5 Mg Tab (Immediate Release)) 5 - 10 mg PO QID PRN PRN Reason: Pain Stop: 12/12/23 02:40 Last Admin: 11/28/23 16:16 Dose: 10 mg
--- NOTE | 2023-11-28 18:49 | Magnetic Resonance Report ---
MR lumbar spine wo con CLINICAL HISTORY: spondylolisthesis L4-5 TECHNIQUE: Multiplanar sequences through the lumbar spine were obtained, without intravenous contrast . Comparison: Comparison is made to CT lumbar spine 11/27/2023 FINDINGS: The alignment is anatomical. L1-L2: No significant abnormality. L2-L3: Broad-based posterior disc bulge is seen with mild canal and moderate bilateral neuroforaminal stenosis. L3-L4: Broad-based posterior disc bulge and extradural fat are seen resulting in mild canal stenosis and moderate bilateral neural foraminal stenosis. L4-L5: Broad-based posterior disc bulge and prominent extradural fat result in moderate canal stenosi s, AP diameter 5 mm, and severe right and moderate left neuroforaminal stenosis. L5-S1: No significant abnormality. The spinal ligaments are intact, without evidence of disruption or abnormal signal intensity. The spi nal cord is normal in signal intensity and there is no evidence of cord contusion. There is no eviden ce of an extradural, intradural, extramedullary or intramedullary lesion. Visualized soft tissues are normal. IMPRESSION: Multilevel degenerative changes are seen without to moderate canal stenosis, AP diameter 5 mm, and se [place] right right and moderate left foraminal stenosis. ACT 112: Negative or not required by law. Electronically signed by: Nayan López M.D. 11/28/2023 6:47 PM
--- NOTE | 2023-11-28 19:28 | Communication Note ---
Date of Service: November 28, 2023 Made aware by RN of uncontrolled blood pressure. SBP 1 50-1 60s since a.m. Patient asymptomatic. AP Uncontrolled hypertension New diagnosis DM Initiate lisinopril Will relay to AM provider.
[2023-11-28] MEDS: lisinopril 2.5 MG TAB PO SCH (20:17)
[2023-11-28] MEDS: LANTUS PER UNIT CHARGE SQ SCH (20:18)
[2023-11-28] MEDS: tiZANidine HCL 4 MG TABLET PO PRN (21:47)
[2023-11-28] MEDS: INSULIN ASPART PER UNIT CHARGE SC SCH (22:48)
--- NOTE | 2023-11-29 06:10 | Electrocardiogram Report ---
Test Reason : Blood Pressure : / mmHG Vent. Rate : 071 BPM Atrial Rate : 071 BPM P-R Int : 150 ms QRS Dur : 090 ms QT Int : 426 ms P-R-T Axes : 066 048 006 degrees QTc Int : 462 ms Sinus rhythm with marked sinus arrhythmia Nonspecific T wave abnormality No previous ECGs available Confirmed by Ivan Polo ([id number]) on 11/29/2023 6:10:42 AM Referred By: REFERRED SELF Confirmed By:Ivan Polo
[2023-11-29] MEDS: LIDOCAINE 5% 1 PATCH TD SCH (09:15)
--- NOTE | 2023-11-29 09:41 | Orthopedic Consultation ---
Date of Consultation November 29, 2023 Assessment & Plan (1) Lumbar disc herniation with radiculopathy: Both a CAT scan and MRI are available lumbar spine. The MRI does demonstrate evidence of anterolisthesis L4-5 with marked facet approach. There is evidence of an acute disc herniation with foraminal involvement at L4-5 on the right. There is significant neural encroachment associated. Plan a long discussion with this patient with regarding his MRI findings and clinical course. His options to continue with medication interventional pain management ultimately surgical invention. He is very interested in trying injections. I will consult interventional pain management he understands if he fails to improve we may need to consider surgical intervention. History of Present Illness Reason for Consultation: Right leg pain Attending Physician: Jc Fuentes MD History of Present Illness This is a 58-year-old male that presents with severe right leg radiculopathy. This happened at work Tuesday. He does work at a beer distributor moving cases of beer. He states that while lifting he had the onset of back and leg symptoms. Progressed to the point he required an emergency room visit and ultimately admission. The pain involves the right buttock posterior thigh extending the foot. Does not and extend to the left lower extremity. He has as he does have a history of intermittent back pain but not to this degree. He states the medications have provided some relief but he still unable to walk or move in his bed without immediate onset of radicular pain. Allergies Allergy/AdvReac Type Severity Reaction Status Date / Time No Known Allergies Allergy Verified 11/27/23 21:02 Home Medications Medication Instructions Recorded Confirmed Type aspirin 325 mg tablet,delayed 0 mg PO DIRECTED PRN Pain 11/27/23 11/27/23 History release (Tadeo Aspirin) Patient History Social History Smoking Status: Never smoker Hx Alcohol Use: Yes Alcohol type: beer Hx Substance Use: No Preferred Language: Vincentian Communication Ability: Effective Customer Service Correspondence Clerk Required: No Beliefs That Will Affect Care: None Current Living Situation: Significant Other Feels Safe at Home: Yes Safety Concerns: Feels Safe At This Time Assistive Devices: Glasses Assistive Devices Comment: has not been wearing glasses for a few years Physical Exam Physical Exam: On exam is obvious distress. Exhibits significant tension signs with straight leg raising on the right with contralateral signs on the left. He has breakaway weakness to the quadriceps plantarflexion dorsiflexion on the right. Sensory is grossly intact. Results & Data Vital Signs (Past 12 Hours) Vital Signs Temp Pulse Resp BP Pulse Ox O2 Del Method 11/29/23 07:20 36.7 C 67 16 115/64 94 Room Air
--- NOTE | 2023-11-29 16:37 | Hospitalist Progress Note ---
Date of Service November 29, 2023 Assessment & Plan (1) Lumbar radiculopathy: Plan: Significant low back pain with radiation of the pain to the right buttock and right leg up to the foot Has been going on for a while and worse for the last 2 to 3 days No bladder and/or bowel problem Has been getting pain medications as advised Appreciate orthospine evaluation Has had lumbar spine MRI and the reports are pending Further management will depend on Ortho spine MRI showed anterior listhesis L4-L5 with marked facet approach and acute disc herniation with foraminal involvement at L4-L5 on the right. The orthospine surgeon did discuss the management options with the patient For now he preferred to have medical management including injection with subsequent surgery in near future/future Will get PT OT evaluation Possible discharge tomorrow Situational hypertension, history of borderline hypertension as per patient Blood pressure remains on the upper side at 165/80 Will not start any medications as of yet Blood pressure remains controlled Prediabetes as per patient Hemoglobin A1c is elevated at 9.0 Diabetic diet and diabetes teaching Will put on sliding scale insulin coverage Fatty liver on imaging Likely due to obesity Will advised to reduce weight DVT prophylaxis. SCDs Re: Patient may need procedure for back pain if no response to medical management Full code Text document was generated using [employer] voice recognition software. It may contain grammatical or spelling errors. Kindly contact undersigned for clarification of any documentation item in question. Admission and Anticipated Discharge Date Admission Date: November 28, 2023 Subjective 11/28/2023 The patient was seen and examined in medical floor He has been having back pain for a while but the pain got worse for the last 2 to 3 days Pain in the lower back radiates to right leg up to the foot Has not been getting any improvement even following admission 11/29/2023 The patient was seen and examined in medical floor Still has the pain but minimally improved Denies any problem with urine or bowel habit Review of Systems Review of Systems: All systems reviewed and are unremarkable except as noted below Physical Exam Physical Exam: Lying in bed without any acute distress Constitutional: well developed, well nourished, + ill appearing and + obese Eyes: PERRL, conjunctivae normal, anicteric sclerae ENMT: external ear and nose normal, oropharynx normal Neck: trachea midline, no thyromegaly Respiratory: no respiratory distress Auscultation: lungs clear to auscultation bilaterally Cardiovascular: Rate/Rhythm: regular rate and regular rhythm; not tachycardic Heart Sounds: normal S1 and normal S2; no murmur Extremities: no edema Gastrointestinal (Abdomen): Inspection/Auscultation: normal bowel sounds; abdomen not distended Percussion/Palpation: abdomen soft; abdomen nontender Musculoskeletal: No acute arthritis involving any of the joint Neurologic: normal touch/pain/proprioception and moves all extremities; no focal motor deficits Psychiatric: A+Ox3, euthymic affect Lymphatic: no cervical or axillary lymphadenopathy Results & Data Results & Data Vital Signs (Past 12 Hours) Vital Signs Temp Pulse Resp BP Pulse Ox O2 Del Method 11/29/23 15:25 36.7 C 62 16 110/65 93 Room Air 11/29/23 07:20 36.7 C 67 16 115/64 94 Room Air Medications Administered Current Inpatient Medications Acetaminophen (Acetaminophen 500 Mg Tab) 500 mg PO Q6H PRN PRN Reason: fever/pain Stop: 12/28/23 02:40 Dextrose (Dextrose 50% 50 Ml Syringe) 25 - 50 ml IV UD PRN; Protocol PRN Reason: Hypoglycemia Protocol Stop: 12/28/23 17:57 Glucagon (Glucagon For Inj 1 Mg Vial) 1 mg SQ UD PRN; Protocol PRN Reason: Hypoglycemia Protocol Stop: 12/28/23 17:57 Glucose (Glucose 10 Tab/Tube) 4 - 8 tab PO UD PRN; Protocol PRN Reason: Hypoglycemia Treatment Stop: 12/28/23 17:57 Glucose (Glucose 40% Gel 15 Gm Tube) 15 - 30 gm PO UD PRN; Protocol PRN Reason: Hypoglycemia Protocol Stop: 12/28/23 17:57 Promethazine HCl 12.5 mg/ (Sodium Chloride) 50.5 mls @ 202 mls/hr IV Q6H PRN PRN Reason: Nausea And Vomiting Stop: 12/28/23 02:40 Insulin Aspart (Insulin Aspart Per Unit Charge) 0 units SC ACHS [facility] Stop: 12/28/23 20:59 Last Admin: 11/29/23 12:41 Dose: 6 units Insulin Glargine (Lantus Per Unit Charge) 10 units SQ HS [facility]OM Stop: 12/28/23 19:29 Last Admin: 11/28/23 20:18 Dose: 10 units Ketorolac Tromethamine (Ketorolac Tromethamine 15 Mg/Ml Vial) 15 mg IV Q6H PRN PRN Reason: Pain Stop: 12/03/23 13:01 Last Admin: 11/29/23 07:46 Dose: 15 mg Lidocaine (Lidocaine 5% 1 Patch) 1 patch TD QAM [facility] Stop: 12/29/23 08:59 Last Admin: 11/29/23 09:15 Dose: 1 patch Lisinopril (Lisinopril 2.5 Mg Tab) 2.5 mg PO HS [facility] Stop: 12/28/23 19:29 Last Admin: 11/28/23 20:17 Dose: 2.5 mg Lorazepam (Lorazepam 0.5 Mg Tab) 0.5 mg PO TID PRN PRN Reason: Anxiety Stop: 12/28/23 02:40 Last Admin: 11/28/23 13:05 Dose: 0.5 mg Miscellaneous (Remove Lidoderm Patch) 1 each N/A DAILY@2100 [facility] Stop: 12/28/23 14:59 Last Admin: 11/28/23 16:22 Dose: Not Given Miscellaneous (Carbohydrates For Hypoglycemia ) 15 - 30 gm PO UD PRN PRN Reason: Hypoglycemia Protocol Stop: 12/28/23 17:57 Morphine Sulfate (Morphine Sulfate 4 Mg/Ml 1 Ml Carp\Vial) 4 mg IV Q4H PRN PRN Reason: Pain Stop: 12/12/23 02:40 Last Admin: 11/29/23 15:12 Dose: 4 mg Oxycodone HCl (Oxycodone Hcl Ir 5 Mg Tab (Immediate Release)) 5 - 10 mg PO QID PRN PRN Reason: Pain Stop: 12/12/23 02:40 Last Admin: 11/29/23 12:41 Dose: 10 mg Tizanidine HCl (Tizanidine Hcl 4 Mg Tablet) 2 mg PO TID PRN PRN Reason: spasm Stop: 12/28/23 20:59 Last Admin: 11/29/23 06:13 Dose: 2 mg
[2023-11-29] MEDS: ACETAMINOPHEN 500 MG TAB PO PRN (21:12)
[2023-11-30 07:42] LABS: Basophils # (auto) 0.08 K/uL (0.00-0.20); Basophils % (auto) 1.3 %; Eosinophils # (auto) 0.14 K/uL (0.00-0.50); Eosinophils % (auto) 2.3 %; Hematocrit (blood only) 40.7 % (42.0-52.0); Hemoglobin 14.7 g/dl (14.0-18.0); Immature Granulocytes # (auto) 0.02 K/uL (0.01-0.20); Immature Granulocytes % (auto) 0.3 %; Lymphocytes # (auto) 1.46 K/uL (1.20-3.40); Lymphocytes % (auto) 23.8 %; Mean Corpuscular Hemoglobin 33.6 pg (25.0-34.0); Mean Corpuscular Hgb Conc 36.1 g/dL (32.0-36.0); Mean Corpuscular Volume 93.1 fL (80.0-100.0); Mean Platelet Volume 9.6 fL (9.4-12.4); Monocytes % (auto) 9.8 %; Neutrophils # (auto) 3.84 K/uL (1.40-6.50); Neutrophils % (auto) 62.5 %; Platelet Count 120 K/uL (130-400); RDW Coefficient of Variation 12.5 % (11.5-14.5); RDW Standard Deviation 42.8 fL (36.4-46.3); Red Blood Count 4.37 M/uL (4.70-6.10); White Blood Count 6.14 K/ul (4.8-10.8)
[2023-11-30 08:07] LABS: Calcium 8.3 mg/dl (8.6-10.3); Creatinine Clr Calc Pharmacy 112.6 ml/min; Est GFR (African American) 113.3 ml/min; Est GFR (Non-African American) 97.8 ml/min; Potassium 3.9 mmol/L (3.5-5.1)
[2023-11-30] MEDS ORDERED: methylPREDNISolone 4 MG TAB, 6 DAY TAPER PO SCH (08:15)
[2023-11-30] MEDS: GABAPENTIN 300 MG CAP PO SCH (09:24)
[2023-11-30] MEDS: methylPREDNISolone 4 MG TAB PO SCH ×2 (09:24→14:04)
--- NOTE | 2023-11-30 09:39 | Pain Management Consultation ---
Date of Consultation November 30, 2023 Assessment & Plan (1) Lumbar disc herniation with radiculopathy: (2) Hyperglycemia: Plan 1. Patient with acute onset of lumbar radiculopathy with right-sided lumbar discrimination L4-5. We discussed pursuing a right L4-5 transforaminal TASHI. Side effects versus benefits were discussed at length with the patient. All his questions were answered. He does like to proceed with the TASHI procedure. Will further discuss with Dr. Alcantara/Onesimo regarding availability to pursue lumbar TASHI. 2. Will initiate Medrol Dosepak. We discussed the potential for elevated blood glucose response. 3. MiraLAX was prescribed for as needed use with any constipation complaints given his use of opiate therapy 4. Will initiate gabapentin 300 5. Mg at bedtime titrating to twice daily x 1 day then 3 times daily 5. Patient may continue with his as needed Oxy IR and IV morphine for breakthrough pain 6. Pain service will continue to follow Thank you for allowing us to participate in the care of Mr. Quiroga. History of Present Illness Reason for Consultation: Lumbar radicular pain/lumbar disc herniation Requesting Physician: Reymundo Douglas DO Attending Physician: Jc Fuentes MD History of Present Illness Mr. Quiroga who was admitted 3 days ago with complaint of acute onset of low back pain and right lower extremity radicular pain which occurred while lifting a case of beer. Patient has had persistent right-sided low back and right lower extremity radicular pain upon this admission which she describes as sharp, burning, shooting and electrical shocklike in characteristic. He rates his pain a 3/10 at its best and 9/10 at its worst. He is experiencing difficulty ambulating and moving in and out of bed due to the pain. Patient indicates his pain is 80% radicular and 20% in the low back/gluteal region on the right side only. He has no left-sided low back pain or left lower extremity radicular pattern pain. Patient denies any bowel or bladder incontinence or saddle anesthesia. Patient was evaluated by Dr. Douglas who discussed surgical intervention but patient wishes to further discuss interventional treatment prior to committing to surgery. Patient has been relying on a fairly significant amount of opiate therapy for breakthrough pain utilizing 40 mg of Oxy IR the past 24 hours and 16 mg of IV morphine. Patient has not been treated with any oral steroids, anticonvulsants or muscle relaxer therapy per his report. Patient reports no bowel movement since Tuesday. He denies abdominal pain, bloating or fullness. He typically has bowel movements daily. Patient has no further constitution complaints. Plan of care discussed with Dr. Ashley Alcantara. Pain Assessment Full Body Front + Back: 2 1. Right lumbar radicular pain 2. Right lumbar radicular pain Pain scale - at its best (0-10): 4 Pain scale - at its worst (0-10): 9 Allergies Allergy/AdvReac Type Severity Reaction Status Date / Time No Known Allergies Allergy Verified 11/27/23 21:02 Home Medications Medication Instructions Recorded Confirmed Type aspirin 325 mg tablet,delayed 0 mg PO DIRECTED PRN Pain 11/27/23 11/27/23 History release (Tadeo Aspirin) Pain History Pain Intensity Pain scale - at its best (0-10): 4 Pain scale - at its worst (0-10): 9 Patient History Social History Smoking Status: Never smoker Hx Alcohol Use: Yes Alcohol type: beer Hx Substance Use: No Preferred Language: Dominican Communication Ability: Effective Jig Bore Tool Maker Required: No Beliefs That Will Affect Care: None Current Living Situation: Significant Other Feels Safe at Home: Yes Safety Concerns: Feels Safe At This Time Assistive Devices: Glasses Assistive Devices Comment: has not been wearing glasses for a few years Physical Exam 2 Physical Exam: General: Patient sitting quietly in exam room in no acute distress. Speech and thought process appropriate. Mood and affect appropriate. Cognition intact. Head: Normocephalic and atraumatic. ENT: No evidence of nasal or oral mucosal lesions. Mucous membranes are moist. Eyes: Pupils equal round reactive to light. Abdomen: Protuberant. Nondistended. No organomegaly. Bowel sounds active. Back/spine: Patient is nontender over the midline. No focal facet or SI joint tenderness. Patient mildly tender over the right lumbosacral and gluteal region to palpation which is nonfocal. No appreciable spasm or myoneural trigger point. Patient was able to logroll towards his left side for physical exam. Lower extremities: SLR is positive on the right reproducing radicular pain aggravated with dorsiflexion in a predominant L4 versus L5 distribution. SLR is negative on the left. Strength testing was 4+/5 on the right with guarding and 5/5 on the left. Sensation was intact without focal deficit. No appreciable edema. Neurologic: Cranial nerves grossly intact. Ambulatory function not witnessed. Results (Pain Clinic) Diagnostic Review MRI Findings: [place], [place] [phone] Magnetic Resonance Report Patient: JESSICA QUIROGA Admit Date: 11/28/23 MR#: [id number] Address1: [address] Acct ID:[id number] Address2: Date: 1965 [facility] Zip: [place] [address] Age: 58 Location: 3W Sex: M Room/Bed: [facility] Att Phy: Jc Fuentes MD Diagnosis: BACK PAIN Uma Phy: PCP,NO Service Date: 11/28/23 Fam Phy: Interpreting Phy: [facility]y: Dedrick Hoang MD Ordering Phy: Stacey Murphy cc: ~ MR lumbar spine wo con CLINICAL HISTORY: spondylolisthesis L4-5 TECHNIQUE: Multiplanar sequences through the lumbar spine were obtained, without intravenous contrast. Comparison: Comparison is made to CT lumbar spine 11/27/2023 FINDINGS: The alignment is anatomical. L1-L2: No significant abnormality. L2-L3: Broad-based posterior disc bulge is seen with mild canal and moderate bilateral neuroforaminal stenosis. L3-L4: Broad-based posterior disc bulge and extradural fat are seen resulting in mild canal stenosis and moderate bilateral neural foraminal stenosis. L4-L5: Broad-based posterior disc bulge and prominent extradural fat result in moderate canal stenosis, AP diameter 5 mm, and severe right and moderate left neuroforaminal stenosis. L5-S1: No significant abnormality. The spinal ligaments are intact, without evidence of disruption or abnormal signal intensity. The spinal cord is normal in signal intensity and there is no evidence of cord contusion. There is no evidence of an extradural, intradural, extramedullary or intramedullary lesion. Visualized soft tissues are normal. IMPRESSION: Multilevel degenerative changes are seen without to moderate canal stenosis, AP diameter 5 mm, and severe right right and moderate left foraminal stenosis. ACT 112: Negative or not required by law. Electronically signed by: Nayan López M.D. 11/28/2023 6:47 PM Dictated: 11/28/231813 Transcribed: 11/28/231813
--- NOTE | 2023-11-30 14:21 | Hospitalist Progress Note ---
Date of Service November 30, 2023 Assessment & Plan (1) Lumbar radiculopathy: Plan: Significant low back pain with radiation of the pain to the right buttock and right leg up to the foot Has been going on for a while and worse for the last 2 to 3 days No bladder and/or bowel problem Has been getting pain medications as advised Appreciate orthospine evaluation Has had lumbar spine MRI and the reports are pending Further management will depend on Ortho spine MRI showed anterior listhesis L4-L5 with marked facet approach and acute disc herniation with foraminal involvement at L4-L5 on the right. The orthospine surgeon did discuss the management options with the patient Pain management hopeful to schedule OP TASHI for Tuesday He is feeling improvement with steroid and gabapentin, will continue Will get PT OT evaluation Possible discharge tomorrow with outpatient pain management follow up on Tuesday Situational hypertension, history of borderline hypertension as per patient Blood pressure remains on the upper side at 166/84, but is labile pain is likely a contributing factor will not start on antihypertensive at this time, will try pain control first Prediabetes as per patient Hemoglobin A1c is elevated at 9.0 Diabetic diet and diabetes teaching Will put on sliding scale insulin coverage Fatty liver on imaging Likely due to obesity Will advised to reduce weight DVT prophylaxis. SCDs Re: Patient may need procedure for back pain if no respo nse to medical management Full code Pt was seen and examined in collaboration with Dr. Fuentes, please see addendum A total of 44 minutes was spent coordinating, documenting, and providing care for this patient excluding time spent in the performance of separately billed services. This included personally viewing all current laboratories and imaging studies, medication reconciliation, outpatient chart review, and discussion with specialists. Admission and Anticipated Discharge Date Admission Date: November 29, 2023 Supervising Physician Co-Signing Physician Notes Attending addendum: The patient was seen and examined in medical floor He has been feeling little better following steroid and change of oral pain medications He will have lumbar spinal injection on Tuesday On examination Sitting on a chair without any acute distress Hemodynamically stable with blood pressure on the upper side at 166/84 Chest-clear to auscultate bilaterally Heart-S1-S2, regular Abdomen-benign Extremities-negative for any edema His admission lab, medications and imaging studies reviewed Has lumbar radiculopathy which may need surgical correction in near future Trial medical management and injection now Agree with assessment and plan as outlined above by Letitia Fuentes Subjective Patient was seen and examined in 352. Follow-up back pain. He states after taking the steroid it seemed to alleviate the, "shooting," pains. He is hopeful to try to get out of bed today. He denies f/c/s, chest pain, sob, n/v/d, abd pain. Review of Systems Review of Systems: All systems reviewed & are unremarkable except as noted in HPI & below All systems reviewed and are unremarkable except as noted below Physical Exam Physical Exam: Gen: WD/WN, lying in bed, NAD, A&O x3 HEENT: Normocephalic, atraumatic, conjunctivae moist, sclerae anicteric, mucous membranes moist. Lung: Clear to Auscultation bilaterally, no wheezes/rales/rhonchi Heart: Regular rate, regular rhythm, no murmurs, rubs, or gallops Abdomen: Soft, NT, ND +BS x 4 Extremities: No edema Skin: Warm, no rash, negative turgor. Constitutional: well developed, well nourished, + ill appearing and + obese Eyes: PERRL, conjunctivae normal, anicteric sclerae ENMT: external ear and nose normal, oropharynx normal Neck: trachea midline, no thyromegaly Respiratory: no respiratory distress Auscultation: lungs clear to auscultation bilaterally Cardiovascular: Rate/Rhythm: regular rate and regular rhythm; not tachycardic Heart Sounds: normal S1 and normal S2; no murmur Extremities: no edema Gastrointestinal (Abdomen): Inspection/Auscultation: normal bowel sounds; abdomen not distended Percussion/Palpation: abdomen soft; abdomen nontender Neurologic: normal touch/pain/proprioception and moves all extremities; no focal motor deficits Psychiatric: A+Ox3, euthymic affect Lymphatic: no cervical or axillary lymphadenopathy Results & Data Results & Data Vital Signs (Past 12 Hours) Vital Signs Temp Pulse Resp BP Pulse Ox O2 Del Method 11/30/23 14:01 36.8 C 60 16 166/84 H 94 Room Air 11/30/23 07:41 36.7 C 58 L 16 143/83 H 96 Room Air Diagnostic Findings Abdomen/Pelvis CT 11/27/23 20:53 Exam(s): CT ABDOMEN + PELVIS Without Contrast EXAM: CT Abdomen and Pelvis Without Intravenous Contrast CLINICAL HISTORY: Reason for exam: rt back pain after lifting. TECHNIQUE: Axial computed tomography images of the abdomen and pelvis without intravenous contrast. CTDI is 27.27 mGy and DLP is 1351.81 mGy-cm. Automated exposure control was utilized for the study. A dose lowering technique was utilized adhering to the principles of ALARA. COMPARISON: None. FINDINGS: Lung bases: Minimal posterior dependent atelectasis, otherwise normal lung bases. ABDOMEN: Liver: Possible minimal diffuse fatty liver. Gallbladder and bile ducts: Unremarkable. No calcified stones. No ductal dilation. Pancreas: Unremarkable. No ductal dilation. Spleen: The spleen measures 13.2 cm consistent with borderline mild splenomegaly. Adrenals: Unremarkable. No mass. Kidneys and ureters: Unremarkable. No obstructing stones. No hydronephrosis. Stomach and bowel: Unremarkable. No obstruction. No mucosal thickening. PELVIS: Appendix: Normal appendix. Bladder: Unremarkable. No stones. Reproductive: Mild prostate enlargement. ABDOMEN and PELVIS: Intraperitoneal space: Unremarkable. No free air. No significant fluid collection. Bones/joints: Multilevel degenerative disease of the spine. No acute fracture. No dislocation. Soft tissues: Unremarkable. Vasculature: Unremarkable. No abdominal aortic aneurysm. Lymph nodes: Unremarkable. No enlarged lymph nodes. IMPRESSION: 1. Possible mild diffuse fatty liver with borderline-mild splenomegaly. Remainder of abdominal viscera unremarkable. 2. No acute appendicitis or bowel obstruction. Electronically signed by: Ghazala Aiken MD 11/27/23 22:[address] 11/28/23 03:[address] DOSE: HISTORY: back pain, pls obtain form ctap images TECHNIQUE: Multiaxial CT images of the lumbar spine were performed and reformatted in the sagittal and coronal plane without the use of contrast. A dose lowering technique was utilized adhering to the principles of ALARA. COMPARISON: Abdomen and pelvis CT 11/27/2023. FINDINGS: No fractures within the lumbar spine. The sacrum is intact. There is 3 mm of anterolisthesis of L4 on L5. Mild disc space narrowing at L2-L3 and L4-5. The remaining disc spaces are preserved. Vtav-qm-[id number] facet degenerative changes most pronounced at the L4-5 level. No evidence for spondylolysis. Moderate central canal narrowing at the L4-5 level due to a broad-based posterior disc bulge and ligamentum flavum and facet hypertrophy. There is also moderate to severe bilateral neural foraminal narrowing. There is mild central canal narrowing at L2-L3 and L3-L4 due to broad-based posterior disc bulges. Paravertebral soft tissues are unremarkable. IMPRESSION: 1. No fractures within the lumbar spine. 2. Degenerative changes as described above most pronounced at the L4-L5 level. ACT 112: Negative or not required by law. Electronically signed by: Darnell Crisostomo M.D. 11/28/2023 7:00 AM Lumbar Spine MRI 11/28/23 12:29 MR lumbar spine wo con CLINICAL HISTORY: spondylolisthesis L4-5 TECHNIQUE: Multiplanar sequences through the lumbar spine were obtained, without intravenous contrast. Comparison: Comparison is made to CT lumbar spine 11/27/2023 FINDINGS: The alignment is anatomical. L1-L2: No significant abnormality. L2-L3: Broad-based posterior disc bulge is seen with mild canal and moderate bilateral neuroforaminal stenosis. L3-L4: Broad-based posterior disc bulge and extradural fat are seen resulting in mild canal stenosis and moderate bilateral neural foraminal stenosis. L4-L5: Broad-based posterior disc bulge and prominent extradural fat result in moderate canal stenosis, AP diameter 5 mm, and severe right and moderate left neuroforaminal stenosis. L5-S1: No significant abnormality. The spinal ligaments are intact, without evidence of disruption or abnormal signal intensity. The spinal cord is normal in signal intensity and there is no evidence of cord contusion. There is no evidence of an extradural, intradural, extramedullary or intramedullary lesion. Visualized soft tissues are normal. IMPRESSION: Multilevel degenerative changes are seen without to moderate canal stenosis, AP diameter 5 mm, and severe right right and moderate left foraminal stenosis. ACT 112: Negative or not required by law. Electronically signed by: Nayan López M.D. 11/28/2023 6:47 PM Medications Administered Current Inpatient Medications Acetaminophen (Acetaminophen 500 Mg Tab) 500 mg PO Q6H PRN PRN Reason: fever/pain Stop: 12/28/23 02:40 Last Admin: 11/29/23 21:12 Dose: 500 mg Dextrose (Dextrose 50% 50 Ml Syringe) 25 - 50 ml IV UD PRN; Protocol PRN Reason: Hypoglycemia Protocol Stop: 12/28/23 17:57 Gabapentin (Gabapentin 300 Mg Cap) 300 mg PO TID [facility] Stop: 12/30/23 08:59 Last Admin: 11/30/23 13:19 Dose: 300 mg Glucagon (Glucagon For Inj 1 Mg Vial) 1 mg SQ UD PRN; Protocol PRN Reason: Hypoglycemia Protocol Stop: 12/28/23 17:57 Glucose (Glucose 10 Tab/Tube) 4 - 8 tab PO UD PRN; Protocol PRN Reason: Hypoglycemia Treatment Stop: 12/28/23 17:57 Glucose (Glucose 40% Gel 15 Gm Tube) 15 - 30 gm PO UD PRN; Protocol PRN Reason: Hypoglycemia Protocol Stop: 12/28/23 17:57 Promethazine HCl 12.5 mg/ (Sodium Chloride) 50.5 mls @ 202 mls/hr IV Q6H PRN PRN Reason: Nausea And Vomiting Stop: 12/28/23 02:40 Insulin Aspart (Insulin Aspart Per Unit Charge) 0 units SC [facility] Stop: 12/28/23 20:59 Last Admin: 11/30/23 12:31 Dose: 5 units Insulin Glargine (Lantus Per Unit Charge) 10 units SQ HS [facility] Stop: 12/28/23 19:29 Last Admin: 11/29/23 21:22 Dose: 10 units Ketorolac Tromethamine (Ketorolac Tromethamine 15 Mg/Ml Vial) 15 mg IV Q6H PRN PRN Reason: Pain Stop: 12/03/23 13:01 Last Admin: 11/30/23 09:23 Dose: 15 mg Lidocaine (Lidocaine 5% 1 Patch) 1 patch TD QAM [facility] Stop: 12/29/23 08:59 Last Admin: 11/30/23 10:27 Dose: 1 patch Lisinopril (Lisinopril 2.5 Mg Tab) 2.5 mg PO [facility] Stop: 12/28/23 19:29 Last Admin: 11/29/23 21:26 Dose: 2.5 mg Lorazepam (Lorazepam 0.5 Mg Tab) 0.5 mg PO TID PRN PRN Reason: Anxiety Stop: 12/28/23 02:40 Last Admin: 11/29/23 21:23 Dose: 0.5 mg Methylprednisolone (Methylprednisolone 4 Mg Tab) 8 mg PO TODAY@0900,2100 [facility] Stop: 11/30/23 21:01 Last Admin: 11/30/23 09:24 Dose: 8 mg Methylprednisolone (Methylprednisolone 4 Mg Tab) 4 mg PO 1300,1800 [facility] Stop: 11/30/23 18:01 Last Admin: 11/30/23 14:04 Dose: 4 mg Methylprednisolone (Methylprednisolone 4 Mg Tab) 4 mg PO 0700,1300,1800 [facility] Stop: 12/01/23 18:01 Methylprednisolone (Methylprednisolone 4 Mg Tab) 8 mg PO HS [facility] Stop: 12/01/23 21:01 Methylprednisolone (Methylprednisolone 4 Mg Tab) 4 mg PO 0700,1300,1800,2100 [facility] Stop: 12/02/23 21:01 Methylprednisolone (Methylprednisolone 4 Mg Tab) 4 mg PO 0700,1300,2100 [facility] Stop: 12/03/23 21:01 Methylprednisolone (Methylprednisolone 4 Mg Tab) 4 mg PO 0700,2100 [facility] Stop: 12/04/23 21:01 Methylprednisolone (Methylprednisolone 4 Mg Tab) 4 mg PO 0700 [facility] Stop: 12/05/23 07:01 Miscellaneous (Remove Lidoderm Patch) 1 each N/A DAILY@2100 [facility] Stop: 12/28/23 14:59 Last Admin: 11/29/23 21:27 Dose: 1 each Miscellaneous (Carbohydrates For Hypoglycemia ) 15 - 30 gm PO UD PRN PRN Reason: Hypoglycemia Protocol Stop: 12/28/23 17:57 Morphine Sulfate (Morphine Sulfate 4 Mg/Ml 1 Ml Carp\\Vial) 4 mg IV Q4H PRN PRN Reason: Pain Stop: 12/12/23 02:40 Last Admin: 11/30/23 13:23 Dose: 4 mg Oxycodone HCl (Oxycodone Hcl Ir 5 Mg Tab (Immediate Release)) 5 - 10 mg PO QID PRN PRN Reason: Pain Stop: 12/12/23 02:40 Last Admin: 11/30/23 07:23 Dose: 10 mg Polyethylene Glycol (Polyethylene (Miralax) 17 Gm Pack) 17 gm PO DAILY PRN PRN Reason: Constipation Stop: 12/30/23 08:09 Tizanidine HCl (Tizanidine Hcl 4 Mg Tablet) 2 mg PO TID PRN PRN Reason: spasm Stop: 12/28/23 20:59 Last Admin: 11/30/23 04:05 Dose: 2 mg
[2023-11-30] MEDS: POLYETHYLENE (MIRALAX) 17 GM PACK PO PRN (21:30)
[2023-12-01] MEDS: methylPREDNISolone 4 MG TAB PO SCH ×2 (06:21→21:56)
[2023-12-01 06:47] LABS: Basophils # (auto) 0.03 K/uL (0.00-0.20); Basophils % (auto) 0.4 %; Eosinophils # (auto) 0.01 K/uL (0.00-0.50); Eosinophils % (auto) 0.1 %; Hematocrit (blood only) 43.3 % (42.0-52.0); Immature Granulocytes # (auto) 0.03 K/uL (0.01-0.20); Immature Granulocytes % (auto) 0.4 %; Lymphocytes # (auto) 0.85 K/uL (1.20-3.40); Mean Corpuscular Hemoglobin 32.7 pg (25.0-34.0); Mean Corpuscular Hgb Conc 34.6 g/dL (32.0-36.0); Mean Corpuscular Volume 94.3 fL (80.0-100.0); Mean Platelet Volume 9.6 fL (9.4-12.4); Monocytes # (auto) 0.59 K/uL (0.11-0.59); Monocytes % (auto) 7.6 %; Neutrophils # (auto) 6.21 K/uL (1.40-6.50); Neutrophils % (auto) 80.5 %; Platelet Count 126 K/uL (130-400); RDW Standard Deviation 41.4 fL (36.4-46.3); Red Blood Count 4.59 M/uL (4.70-6.10); White Blood Count 7.72 K/ul (4.8-10.8)
[2023-12-01 06:57] LABS: BUN Creatinine Ratio 18.1 (10-20); Calcium 8.9 mg/dl (8.6-10.3); Creatinine Clr Calc Pharmacy 108.5 ml/min; Est GFR (African American) 111.6 ml/min; Est GFR (Non-African American) 96.3 ml/min; Potassium 4.1 mmol/L (3.5-5.1)
--- NOTE | 2023-12-01 09:25 | Pain Management Progress Note ---
Date of Service December 01, 2023 Assessment & Plan (1) Lumbar disc herniation with radiculopathy: (2) Hyperglycemia: Plan 1. Will plan to follow through with a right L4-5 transforaminal TASHI today at 1 PM. The patient has been n.p.o. We discussed the procedure in great detail at today's visit. We discussed risks versus benefits. All of his questions were answered. Consent for the procedure was obtained and placed in chart. 2. Patient will finish prednisone taper and further progress his gabapentin to 300 times daily over the next 2 days. Would recommend he continue these upon discharge 3. Further recommendations will be made pending response to TASHI Admission and Anticipated Discharge Date Admission Date: November 29, 2023 Subjective Mr. Quiroga is reporting slight improvement in his right lower extremity radicular pain. The pain is no longer traveling to the foot. He has been able to be out of bed to the bathroom multiple times with minimal exacerbation of symptoms. His pain is currently a 3/10 ranging between a 3-7/10. He continues with radicular pattern pain to the lateral/anterior thigh. Patient indicates he is tolerating gabapentin with single dose last evening. He is further reporting no side effects from initiation of the Medrol Dosepak. There is plan to pursue transforaminal TASHI later today. He has diminished utilization of Oxy IR over the past 24 hours but similar utilization of IV morphine for breakthrough pain. Patient denies abdominal pain or fullness. He has not had bowel movement yet since hospitalization. He did take MiraLAX last evening. Patient has no further complaints. Plan of care discussed with Dr. Ashley Alcantara. Physical Exam Physical Exam: General: Patient lying quietly in exam room in no acute distress. Speech and thought process appropriate. Mood and affect appropriate. Cognition intact. Back/spine: Patient is nontender over the midline. No focal facet or SI joint tenderness. Patient mildly tender over the right lumbosacral and gluteal region to palpation which is nonfocal. No appreciable spasm or myoneural trigger point. Patient was able to logroll towards his left side for physical exam. Lower extremities: SLR is positive on the right reproducing radicular pain aggravated with dorsiflexion in a predominant L4 versus L5 distribution. SLR is negative on the left. Strength testing was 4+/5 on the right with guarding and 5/5 on the left. Sensation was intact without focal deficit. No appreciable edema. Neurologic: Cranial nerves grossly intact. Ambulatory function not witnessed.
--- NOTE | 2023-12-01 13:38 | Operative Report ---
Post Operative Report Pre & Post Diagnosis lumbar radiculopathy with lumbar disc herniation I identified the patient and participated in the time-out.: Yes Procedure Right L4-5 TFE Surgeon Ashley Alcantara, DO Director Decision Support none Estimated Blood Loss 0 Findings Consistent with Post-Op Diagnosis Fluids none Specimens none Drains none Anesthesia Type Local Complications none Disposition Accompanied Patient To Recovery: No Disposition: Recovery Room Indications lumbar radiculopathy Description of Procedure TRANSFORAMINAL EPIDURAL STEROID INJECTION (DIAGNOSTIC) Diagnosis: Lumbar Radiculitis and Herniated Disc Level injected: Right L4-5 Surgeon: Dr. Ashley Alcantara Anesthesia: local Material forwarded to lab: none Complications: none Medications used in total: 2% lidocaine 5ml Depomedrol 1ml (80mg/ml) Isovue 300 3ml Prior to starting, the Patients diagnosis, allergies, medication list, and the procedure were reviewed with the patient in detail. Potential risks including infection, bleeding, nerve injury, reaction to any one of the medications used for the procedure, persistent pain at the injection site and persistent symptoms discussed with the patient. Diagnostic and therapeutic nature of the procedure also discussed with the patient. Alternatives to the specific procedure was also discussed with the patient. Patient's questions were answered. Patient gives informed consent to proceed. The patient was brought to the fluoroscopy room and placed in prone position on the table. Immediately prior to starting the procedure, a time out was condu cted with the staff and the patient where the patient was identified, proposed procedure was verified, consent was reviewed and the proper site for the planned procedure was identified. Fluoroscopy was utilized in performing the procedure to assist the placement of the needle, to evaluate the final position of the needle prior to injection and to avoid intravascular injection. Monitors used included intermittent blood pressure with automated device, continuous pulse oximetry and level of consciousness. Patient was not given any intravenous sedation and constant verbal contact was maintained throughout the procedure. Lumbar-sacral area was prepped with duraprep and betadine solution. After the application, three minutes time elapsed prior to the start of the procedure to reduce risk of fire. Sterile drapes were applied. The appropriate interspace and disk was identified in a true AP view. The fluoroscope was then rotated to obtain a decubitus view in such a manner so that the superior articular process of the inferior vertebra was bisecting the pars inter-articularis of the vertebra above in two or in the 6 oclock position. Next, 4 mL of 2% lidocaine preservative-free was injected for local skin anesthesia. Then, a 22 Gauge 3.5 inch curved (15 degrees) spinal needle was inserted through the skin and subcutaneous tissues and advanced in a co-axial technique. Needle tip was first placed on the infero-lateral margin of the pars inter-articularis. Once the bony margin was contacted, the C-arm was rotated to obtain a lateral view. The needle was slowly "walked off" the bone and advanced toward the anterior and superior aspect of the foramen. Patient did not experience any pain or paresthesia. A six inch micro bore tubing was attached to the needle and aspiration did not demonstrate CSF or blood. Nonionic Isovue contrast 1ml was injected via the needle Spread of the contrast was predominantly central. No live fluoroscopy was obtained as only a traditional XRay machine was available for use due to mechanical failure. AP view was checked to ensure the needle tip was in the close proximity to the nerve root an in the proximal neural foramen lateral to the inferior articular process and in the 6 oclock position. Neither subdural or subarachnoid spread nor intravascular uptake was noted on plain fluoroscopy. Next 80mg depomedrol was injected followed by 2% lidocaine- MPF 1ml to flush the needle. The patient did not experience pain during the injection. Adequate hemostasis was noted. A sterile Band-Aid was applied to the injection site. Patient was monitored for 30 minutes and discharged with an accompanying adult. Discharge instructions were reviewed with the patient/caregiver. Any specific questions were answered. Patient/caregiver voiced understanding of the instructions. Follow-up appointment has been scheduled. I attest to the content of the Intraoperative Record and any orders documented therein. Any exceptions are noted below.
--- NOTE | 2023-12-01 16:12 | Hospitalist Progress Note ---
Date of Service December 01, 2023 Assessment & Plan (1) Lumbar radiculopathy: Plan: Significant low back pain with radiation of the pain to the right buttock and right leg up to the foot Has been going on for a while and worse for the last 2 to 3 days No bladder and/or bowel problem Has been getting pain medications as advised Appreciate orthospine evaluation Has had lumbar spine MRI and the reports are pending Further management will depend on Ortho spine Orthospine suggested medical management and injection prior to going for surgical treatment. MRI showed anterior listhesis L4-L5 with marked facet approach and acute disc herniation with foraminal involvement at L4-L5 on the right. The orthospine surgeon did discuss the management options with the patient Pain management hopeful to schedule OP TASHI for Tuesday He is feeling improvement with steroid and gabapentin, will continue Will get PT OT evaluation Status post lumbar spinal injection as documented in the chart Will observe overnight and likely discharge tomorrow if remains stable following PT and OT Situational hypertension, history of borderline hypertension as per patient Blood pressure remains on the upper side at 166/84, but is labile pain is likely a contributing factor will not start on antihypertensive at this time, will try pain control first Blood pressure remains controlled Prediabetes as per patient Hemoglobin A1c is elevated at 9.0 Diabetic diet and diabetes teaching Will put on sliding scale insulin coverage Fatty liver on imaging Likely due to obesity Will advised to reduce weight DVT prophylaxis. SCDs Re: Patient may need procedure for back pain if no resp onse to medical management Full code Admission and Anticipated Discharge Date Admission Date: November 29, 2023 Subjective 12/01/2023 The patient was seen and examined in medical floor He will have injection of the lumbar spine this afternoon Pain seems to be reasonable without any movement Radiation of pain to the right leg No bladder and/or bowel problem Review of Systems Review of Systems: All systems reviewed and are unremarkable except as noted below Physical Exam Physical Exam: Lying in bed without any acute distress Constitutional: well developed, well nourished, + ill appearing and + obese Eyes: PERRL, conjunctivae normal, anicteric sclerae ENMT: external ear and nose normal, oropharynx normal Neck: trachea midline, no thyromegaly Respiratory: no respiratory distress Auscultation: lungs clear to auscultation bilaterally Cardiovascular: Rate/Rhythm: regular rate and regular rhythm; not tachycardic Heart Sounds: normal S1 and normal S2; no murmur Extremities: no edema Gastrointestinal (Abdomen): Inspection/Auscultation: normal bowel sounds; abdomen not distended Percussion/Palpation: abdomen soft; abdomen nontender Neurologic: normal touch/pain/proprioception and moves all extremities; no focal motor deficits Psychiatric: A+Ox3, euthymic affect Lymphatic: no cervical or axillary lymphadenopathy Results & Data Results & Data Vital Signs (Past 12 Hours) Vital Signs Temp Pulse Resp BP Pulse Ox O2 Del Method 12/01/23 16:00 36.5 C 54 L 18 128/81 92 Room Air 12/01/23 07:33 36.6 C 65 18 148/71 H 97 Room Air Laboratory Results Short CBC 12/01/23 Range/Units 05:36 WBC 7.72 (4.8-10.8) K/ul Hgb 15.0 (14.0-18.0) g/dl Hct 43.3 (42.0-52.0) % Plt Count 126 L (130-400) K/uL BMP 12/01/23 05:36 Sodium 137 Potassium 4.1 Chloride 103 Carbon Dioxide 26 BUN 15 Creatinine 0.83 Glucose 168 H Calcium 8.9 Medications Administered Current Inpatient Medications Acetaminophen (Acetaminophen 500 Mg Tab) 500 mg PO Q6H PRN PRN Reason: fever/pain Stop: 12/28/23 02:40 Last Admin: 12/01/23 04:43 Dose: 500 mg Dextrose (Dextrose 50% 50 Ml Syringe) 25 - 50 ml IV UD PRN; Protocol PRN Reason: Hypoglycemia Protocol Stop: 12/28/23 17:57 Gabapentin (Gabapentin 300 Mg Cap) 300 mg PO TID [facility] Stop: 12/30/23 08:59 Last Admin: 12/01/23 13:40 Dose: 300 mg Glucagon (Glucagon For Inj 1 Mg Vial) 1 mg SQ UD PRN; Protocol PRN Reason: Hypoglycemia Protocol Stop: 12/28/23 17:57 Glucose (Glucose 10 Tab/Tube) 4 - 8 tab PO UD PRN; Protocol PRN Reason: Hypoglycemia Treatment Stop: 12/28/23 17:57 Glucose (Glucose 40% Gel 15 Gm Tube) 15 - 30 gm PO UD PRN; Protocol PRN Reason: Hypoglycemia Protocol Stop: 12/28/23 17:57 Promethazine HCl 12.5 mg/ (Sodium Chloride) 50.5 mls @ 202 mls/hr IV Q6H PRN PRN Reason: Nausea And Vomiting Stop: 12/28/23 02:40 Insulin Aspart (Insulin Aspart Per Unit Charge) 0 units SC ACHS [facility] Stop: 12/28/23 20:59 Last Admin: 12/01/23 12:21 Dose: Not Given Insulin Glargine (Lantus Per Unit Charge) 10 units SQ HS [facility] Stop: 12/28/23 19:29 Last Admin: 11/30/23 21:20 Dose: 10 units Ketorolac Tromethamine (Ketorolac Tromethamine 15 Mg/Ml Vial) 15 mg IV Q6H PRN PRN Reason: Pain Stop: 12/03/23 13:01 Last Admin: 11/30/23 09:23 Dose: 15 mg Lidocaine (Lidocaine 5% 1 Patch) 1 patch TD QAM [facility] Stop: 12/29/23 08:59 Last Admin: 12/01/23 08:16 Dose: 1 patch Lisinopril (Lisinopril 2.5 Mg Tab) 2.5 mg PO [facility] Stop: 12/28/23 19:29 Last Admin: 11/30/23 21:10 Dose: 2.5 mg Lorazepam (Lorazepam 0.5 Mg Tab) 0.5 mg PO TID PRN PRN Reason: Anxiety Stop: 12/28/23 02:40 Last Admin: 11/29/23 21:23 Dose: 0.5 mg Methylprednisolone (Methylprednisolone 4 Mg Tab) 4 mg PO 0700,1300,1800 [facility] Stop: 12/01/23 18:01 Last Admin: 12/01/23 13:40 Dose: 4 mg Methylprednisolone (Methylprednisolone 4 Mg Tab) 8 mg PO [facility] Stop: 12/01/23 21:01 Methylprednisolone (Methylprednisolone 4 Mg Tab) 4 mg PO 0700,1300,1800,2100 [facility] Stop: 12/02/23 21:01 Methylprednisolone (Methylprednisolone 4 Mg Tab) 4 mg PO 0700,1300,2100 [facility] Stop: 12/03/23 21:01 Methylprednisolone (Methylprednisolone 4 Mg Tab) 4 mg PO 0700,2100 [facility] Stop: 12/04/23 21:01 Methylprednisolone (Methylprednisolone 4 Mg Tab) 4 mg PO 0700 [facility] Stop: 12/05/23 07:01 Miscellaneous (Remove Lidoderm Patch) 1 each N/A DAILY@2099 [facility] Stop: 12/28/23 14:59 Last Admin: 11/30/23 21:10 Dose: 1 each Miscellaneous (Carbohydrates For Hypoglycemia ) 15 - 30 gm PO UD PRN PRN Reason: Hypoglycemia Protocol Stop: 12/28/23 17:57 Morphine Sulfate (Morphine Sulfate 4 Mg/Ml 1 Ml Carp\Vial) 4 mg IV Q4H PRN PRN Reason: Pain Stop: 12/12/23 02:40 Last Admin: 12/01/23 15:55 Dose: 4 mg Oxycodone HCl (Oxycodone Hcl Ir 5 Mg Tab (Immediate Release)) 5 - 10 mg PO QID PRN PRN Reason: Pain Stop: 12/12/23 02:40 Last Admin: 12/01/23 14:26 Dose: 10 mg Polyethylene Glycol (Polyethylene (Miralax) 17 Gm Pack) 17 gm PO DAILY PRN PRN Reason: Constipation Stop: 12/30/23 08:09 Last Admin: 11/30/23 21:30 Dose: 17 gm Tizanidine HCl (Tizanidine Hcl 4 Mg Tablet) 2 mg PO TID PRN PRN Reason: spasm Stop: 12/28/23 20:59 Last Admin: 12/01/23 13:39 Dose: 2 mg
[2023-12-02] MEDS: methylPREDNISolone 4 MG TAB PO SCH (06:37)
--- NOTE | 2023-12-02 08:16 | Hospitalist Progress Note ---
Date of Service December 02, 2023 Assessment & Plan (1) Lumbar radiculopathy: Plan: Significant low back pain with radiation of the pain to the right buttock and right leg up to the foot Has been going on for a while and worse for the last 2 to 3 days No bladder and/or bowel problem Has been getting pain medications as advised Appreciate orthospine evaluation Has had lumbar spine MRI and the reports are pending Further management will depend on Ortho spine Orthospine suggested medical management and injection prior to going for surgical treatment. MRI showed anterior listhesis L4-L5 with marked facet approach and acute disc herniation with foraminal involvement at L4-L5 on the right. The orthospine surgeon did discuss the management options with the patient Pain management hopeful to schedule OP TASHI for Tuesday He is feeling improvement with steroid and gabapentin, will continue Will get PT OT evaluation Status post lumbar spinal injection as documented in the chart Will observe overnight and likely discharge tomorrow if remains stable following PT and OT Has been doing much better following the lumbar injection Ambulating without any difficulties and he wants to leave today He will have an appointment with PCP following discharge Situational hypertension, history of borderline hypertension as per patient Blood pressure remains on the upper side at 166/84, but is labile pain is likely a contributing factor will not start on antihypertensive at this time, will try pain control first Blood pressure remains controlled Prediabetes as per patient Hemoglobin A1c is elevated at 9.0 Diabetic diet and diabetes teaching Will put on sliding scale insulin coverage Strongly advised to follow diabetic diet and he will follow instructions as per diabetes teaching nurse and go from the He will be started with metformin 750 mg ER once daily on discharge Fatty liver on imaging Likely due to obesity Will advised to reduce weight DVT prophylaxis. SCDs Re: Patient may need procedure for back pain if no response to medical management Full code Admission and Anticipated Discharge Date Admission Date: November 29, 2023 Subjective 12/01/2023 The patient was seen and examined in medical floor He will have injection of the lumbar spine this afternoon Pain seems to be reasonable without any movement Radiation of pain to the right leg No bladder and/or bowel problem 12/02/2023 The patient was seen and examined in medical floor She is status post lumbar injection and has been doing much better Denies any significant symptoms and the pain has been minimal He has been ambulating without difficulties and wants to leave Review of Systems Review of Systems: All systems reviewed and are unremarkable except as noted below Physical Exam Physical Exam: Lying in bed without any acute distress Constitutional: well developed, well nourished, + ill appearing and + obese Eyes: PERRL, conjunctivae normal, anicteric sclerae ENMT: external ear and nose normal, oropharynx normal Neck: trachea midline, no thyromegaly Respiratory: no respiratory distress Auscultation: lungs clear to auscultation bilaterally Cardiovascular: Rate/Rhythm: regular rate and regular rhythm; not tachycardic Heart Sounds: normal S1 and normal S2; no murmur Extremities: no edema Gastrointestinal (Abdomen): Inspection/Auscultation: normal bowel sounds; abdomen not distended Percussion/Palpation: abdomen soft; abdomen nontender Musculoskeletal: No acute arthritis involving any of the joints Neurologic: normal touch/pain/proprioception and moves all extremities; no focal motor deficits Psychiatric: A+Ox3, euthymic affect Lymphatic: no cervical or axillary lymphadenopathy Results & Data Results & Data Vital Signs (Past 12 Hours) Vital Signs Temp Pulse Resp BP Pulse Ox O2 Del Method 12/02/23 07:53 36.8 C 50 L 12 140/86 96 Room Air 12/01/23 22:00 Room Air Medications Administered Current Inpatient Medications Acetaminophen (Acetaminophen 500 Mg Tab) 500 mg PO Q6H PRN PRN Reason: fever/pain Stop: 12/28/23 02:40 Last Admin: 12/01/23 04:43 Dose: 500 mg Dextrose (Dextrose 50% 50 Ml Syringe) 25 - 50 ml IV UD PRN; Protocol PRN Reason: Hypoglycemia Protocol Stop: 12/28/23 17:57 Gabapentin (Gabapentin 300 Mg Cap) 300 mg PO TID [facility] Stop: 12/30/23 08:59 Last Admin: 12/02/23 07:56 Dose: 300 mg Glucagon (Glucagon For Inj 1 Mg Vial) 1 mg SQ UD PRN; Protocol PRN Reason: Hypoglycemia Protocol Stop: 12/28/23 17:57 Glucose (Glucose 10 Tab/Tube) 4 - 8 tab PO UD PRN; Protocol PRN Reason: Hypoglycemia Treatment Stop: 12/28/23 17:57 Glucose (Glucose 40% Gel 15 Gm Tube) 15 - 30 gm PO UD PRN; Protocol PRN Reason: Hypoglycemia Protocol Stop: 12/28/23 17:57 Promethazine HCl 12.5 mg/ (Sodium Chloride) 50.5 mls @ 202 mls/hr IV Q6H PRN PRN Reason: Nausea And Vomiting Stop: 12/28/23 02:40 Insulin Aspart (Insulin Aspart Per Unit Charge) 0 units SC ACHS [facility] Stop: 12/28/23 20:59 Last Admin: 12/01/23 22:06 Dose: 4 units Insulin Glargine (Lantus Per Unit Charge) 10 units SQ HS [facility] Stop: 12/28/23 19:29 Last Admin: 12/01/23 22:06 Dose: 10 units Ketorolac Tromethamine (Ketorolac Tromethamine 15 Mg/Ml Vial) 15 mg IV Q6H PRN PRN Reason: Pain Stop: 12/03/23 13:01 Last Admin: 11/30/23 09:23 Dose: 15 mg Lidocaine (Lidocaine 5% 1 Patch) 1 patch TD QAM [facility] Stop: 12/29/23 08:59 Last Admin: 12/02/23 07:56 Dose: 1 patch Lisinopril (Lisinopril 2.5 Mg Tab) 2.5 mg PO [facility] Stop: 12/28/23 19:29 Last Admin: 12/01/23 21:56 Dose: 2.5 mg Lorazepam (Lorazepam 0.5 Mg Tab) 0.5 mg PO TID PRN PRN Reason: Anxiety Stop: 12/28/23 02:40 Last Admin: 12/01/23 21:53 Dose: 0.5 mg Methylprednisolone (Methylprednisolone 4 Mg Tab) 4 mg PO 0700,1300,1800,2100 [facility] Stop: 12/02/23 21:01 Last Admin: 12/02/23 06:37 Dose: 4 mg Methylprednisolone (Methylprednisolone 4 Mg Tab) 4 mg PO 0700,1300,2100 [facility] Stop: 12/03/23 21:01 Methylprednisolone (Methylprednisolone 4 Mg Tab) 4 mg PO 0700,2100 [facility] Stop: 12/04/23 21:01 Methylprednisolone (Methylprednisolone 4 Mg Tab) 4 mg PO 0700 [facility] Stop: 12/05/23 07:01 Miscellaneous (Remove Lidoderm Patch) 1 each N/A DAILY@2100 [facility] Stop: 12/28/23 14:59 Last Admin: 12/01/23 22:07 Dose: 1 each Miscellaneous (Carbohydrates For Hypoglycemia ) 15 - 30 gm PO UD PRN PRN Reason: Hypoglycemia Protocol Stop: 12/28/23 17:57 Morphine Sulfate (Morphine Sulfate 4 Mg/Ml 1 Ml Carp\Vial) 4 mg IV Q4H PRN PRN Reason: Pain Stop: 12/12/23 02:40 Last Admin: 12/01/23 15:55 Dose: 4 mg Oxycodone HCl (Oxycodone Hcl Ir 5 Mg Tab (Immediate Release)) 5 - 10 mg PO QID PRN PRN Reason: Pain Stop: 12/12/23 02:40 Last Admin: 12/02/23 07:55 Dose: 10 mg Polyethylene Glycol (Polyethylene (Miralax) 17 Gm Pack) 17 gm PO DAILY PRN PRN Reason: Constipation Stop: 12/30/23 08:09 Last Admin: 12/01/23 21:54 Dose: 17 gm Tizanidine HCl (Tizanidine Hcl 4 Mg Tablet) 2 mg PO TID PRN PRN Reason: spasm Stop: 12/28/23 20:59 Last Admin: 12/02/23 07:56 Dose: 2 mg
[2023-12-03] MEDS ORDERED: methylPREDNISolone 4 MG TAB PO SCH (07:00)
--- NOTE | 2023-12-03 07:23 | Discharge Summary ---
Date of Service December 02, 2023 Admission HPI Per Admitting Provider History obtained from patient and records. Medical history significant for borderline hypertension, borderline DM per patient. Patient experienced achy right-sided back pain after lifting cases of beer at work yesterday. No fever, no chills, no unusual weight loss. Denies bowel/bladder incontinence. Denies headache. Patient still unable to walk despite IV analgesics and steroids given at the ER. SBP 180s upon arrival at the ER. Medical History as above Surgical History : Lipoma removal lower extremity Family History : High blood pressure, hyperlipidemia Personal/Social history : Non-smoker, occasional EtOH intake, [employer] business Admission Exam Per Admitting Provider Physical Exam: GENERAL: Slightly uncomfortable, obese, pleasant, no respiratory distress SKIN: Normal color, warm HEENT: [place] palpebral conjunctivae, no ptosis, dry buccal mucosa NECK : Supple, short neck, no tenderness CHEST : CTA, no tenderness HEART : RRR, no obvious murmurs ABDOMEN: Some distention, nontender BACK : Low back tenderness, positive SLR right EXTREMITIES : No LE swelling, subcutaneous tumor left thigh, no other conspicuous deformities noted NEUROLOGIC : Coherent, no facial asymmetry, no other gross focality Principal Diagnosis Lumbar radiculopathy status post transforaminal epidural steroid injection, type 2 diabetes, hypertension Discharge Exam Lying in bed without any acute distress Constitutional well developed, well nourished, + ill appearing and + obese Eyes PERRL, conjunctivae normal, anicteric sclerae ENMT external ear and nose normal, oropharynx normal Neck trachea midline, no thyromegaly Respiratory no respiratory distress Auscultation: lungs clear to auscultation bilaterally Cardiovascular Rate/Rhythm: regular rate and regular rhythm; not tachycardic Heart Sounds: normal S1 and normal S2; no murmur Extremities: no edema Gastrointestinal (Abdomen) Inspection/Auscultation: normal bowel sounds; abdomen not distended Percussion/Palpation: abdomen soft; abdomen nontender Neurologic normal touch/pain/proprioception and moves all extremities; no focal motor deficits Psychiatric A+Ox3, euthymic affect Lymphatic no cervical or axillary lymphadenopathy Discharge Data Allergies Allergy/AdvReac Type Severity Reaction Status Date / Time No Known Allergies Allergy Verified 11/27/23 21:02 Consultations 11/28/23 01:49 ED Decision to Admit Stat 04/08/24 09:59 Consult Orthopedic Spine Surgery Routine 11/29/23 09:39 Consult Pain Management Routine Ordered Studies 11/27/23 20:53 CT abd pelvis wo con Stat 11/28/23 03:05 CT lumbar spine wo con Stat 11/28/23 12:29 MR lumbar spine wo con Routine 12/01/23 13:00 FL guided injection spine Routine Diabetes Follow up Diabetes Follow-up Needed for HgbA1c >9%,Newly Diagnosed Diabetes Hospital Course (1) Lumbar radiculopathy: Significant low back pain with radiation of the pain to the right buttock and right leg up to the foot Has been going on for a while and worse for the last 2 to 3 days No bladder and/or bowel problem Has been getting pain medications as advised Appreciate orthospine evaluation Has had lumbar spine MRI and the reports are pending Further management will depend on Ortho spine Orthospine suggested medical management and injection prior to going for surgical treatment. MRI showed anterior listhesis L4-L5 with marked facet approach and acute disc herniation with foraminal involvement at L4-L5 on the right. The orthospine surgeon did discuss the management options with the patient Pain management hopeful to schedule OP TASHI for Tuesday He is feeling improvement with steroid and gabapentin, will continue Will get PT OT evaluation Status post lumbar spinal injection as documented in the chart Will observe overnight and likely discharge tomorrow if remains stable following PT and OT Has been doing much better following the lumbar injection Ambulating without any difficulties and he wants to leave today He will have an appointment with PCP following discharge Situational hypertension, history of borderline hypertension as per patient Blood pressure remains on the upper side at 166/84, but is labile pain is likely a contributing factor will not start on antihypertensive at this time, will try pain control first Blood pressure remains controlled Prediabetes as per patient Hemoglobin A1c is elevated at 9.0 Diabetic diet and diabetes teaching Will put on sliding scale insulin coverage Strongly advised to follow diabetic diet and he will follow instructions as per diabetes teaching nurse and go from the He will be started with metformin 750 mg ER once daily on discharge Fatty liver on imaging Likely due to obesity Will advised to reduce weight DVT prophylaxis. SCDs Re: Patient may need procedure for back pain if no response to medical management Full code Total Time Total Time Spent Total Time Spent (In Minutes): 40 minutes Discharge Plan Discharge Items Patient Disposition: Home - Self-Care Reason For Visit: BACK PAIN Discharge Diagnosis: Lumbar radiculopathy status post transforaminal epidural steroid injection, type 2 diabetes, hypertension Condition on Discharge: Good Activity: Resume your previous activity Non-emergency contact: Primary Care Provider Call non-emergency contact if: you have any medication questions and your symptoms worsen Follow-up/Referrals: Dr Artemio Guerrero [Other] (Date & Time 12/08/2023 2:00 PM Provider Artemio Guerrero MD Department Family Medicine [facility] ) Lemuel Hammer PA-C [Physician Costume Director] - Diet: Carb Consistent or DM2 Addtl Attending Provider Instructions: Please take precautions to avoid falls Take your medications as advised Follow diabetic diet as advised by your dietitian Please start Metformin ER 750 mg daily for 2 weeks and titrate up to 2 times a day from your primary care physician Have your blood sugar checked 2 times daily as advised by diabetes teaching nurse and keep a record to show you to your PCP Your diabetic medications will need to be adjusted through your PCP Please keep appointments with the healthcare providers Pending Studies at Discharge: No Stand-Alone Forms: My Greasebook, Smoking Cessation Medications and DC Order Prescriptions: New tizanidine 4 mg Tablet 2 mg PO TID PRN (Reason: muscle spasticity) Qty: 30 0RF gabapentin 300 mg Capsule 300 mg PO TID Qty: 6 0RF lidocaine [Lidoderm] 5 % adhesive patch,medicated 1 patch topical DAILY Qty: 15 0RF Rx Instructions: leave on most painful area for up to 12 hrs methylprednisolone 4 mg tablet 4 mg PO UD Qty: 9 0RF Rx Instructions: 1 tablet 3 times daily for 2 days, 1 tablet twice daily x 1 day and 1 tablet the next day. metformin 750 mg tablet extended release 24 hr 750 mg PO DAILY Qty: 14 0RF (DME) blood-glucose meter [[id number] Verio Flex meter] Misc See Rx Instructions .Route Qty: 1 0RF Rx Instructions: For checking Blood sugar (DME) OneTouch Verio test strips Strip See Rx Instructions .Route Qty: 50 0RF Rx Instructions: Check Blood sugars 2 times /day (DME) lancets [Gojee Delica Plus Lancet] 33 gauge misc See Rx Instructions .Route Qty: 100 0RF Rx Instructions: 2 times /day Discontinued aspirin [Tadeo Aspirin] 325 mg Tablet,Delayed Release (Dr/Ec) 0 mg PO DIRECTED PRN (Reason: Pain) Rx Instructions: PT UNSURE OF STRENGTH, PER PT "TOOK 2 TABS AT 1300, THEN AGAIN AT 1600". Discharge Orders: Discharge Order (Routine); Ordered 12/02/23 Ordered By: Jc Fuentes Admission Data Admit Date/Time: 11/29/23 16:23 Attending Provider: Jc Fuentes Admit Provider: Jc Fuentes Primary Care Provider: PCP,NO Other Providers: Dedrcik Hoang; Reymundo Douglas; Ashley Alcantara Other Interventions: Discharge Summary Assessment (RN) Last Done: 12/02/23 09:50
[2023-12-04] MEDS ORDERED: methylPREDNISolone 4 MG TAB PO SCH (07:00)
[2023-12-05] MEDS ORDERED: methylPREDNISolone 4 MG TAB PO SCH (07:00)
== END 2023-12-02 11:10 | disposition home or self-care (01) | DRG 552 ==
LOC: ED 20:12 → 3W 20:12